=== PATIENT | female | born 1990 | race Two or more races ===

== ENCOUNTER 2016-06-29 06:14 | Inpatient (IN) | payer OTHER ==
[2016-06-29] VITALS (11 sets, daily range): BP systolic 109–146; BP diastolic 58–88
[~2016-06-29] VITALS: Ht 170.2 cm; Wt 66.7 kg
--- NOTE | 2016-06-29 06:15 | NUR ---
To bed 26 yo female bibra with c/o low blood sugar at 49mg/dl on the field. Per ems D50 was given IVP on the right ac g20 access. Patient is alert oriented x2, reporting bilateral flank pain. Breathing even and unlabored. Provided with warm blankets as patient was complaining that she feels cold. Gowned. Placed on deck mate. Blood sugar upon arrival to ED is 177mg/dl.
--- NOTE | 2016-06-29 06:17 | NUR ---
Dr Brooks at bedside for eval.
[2016-06-29] MEDS ORDERED: LORAZEPAM INJ 2 MG/ML VIAL ONE (06:25)
[2016-06-29] MEDS ORDERED: IV NS 0.9% 1,000 ML BAG IV ONE ×2 (06:30→10:30)
[2016-06-29] MEDS ORDERED: IV NS 0.9% 1,000 ML ONE ×2 (06:35→10:26)
[2016-06-29] MEDS ORDERED: IV SET PRIMARY 1 EA INFUS.SET MC ONE (06:35)
--- NOTE | 2016-06-29 06:37 | NUR ---
ativan 1mg ivp given per Dr venegas verbal order.
[2016-06-29] MEDS ORDERED: LORAZEPAM INJ 2 MG/ML VIAL IV ONE (07:00)
--- NOTE | 2016-06-29 07:00 | NUR ---
Rapid influenza swab done on the left nare.
--- NOTE | 2016-06-29 07:06 | NUR ---
lab at bedside to draw blood.
--- NOTE | 2016-06-29 07:08 | NUR ---
Noted patient to cough out bright red secretions from mouth, Dr Brooks was informed and checked on the patient at bedside.
--- NOTE | 2016-06-29 07:11 | NUR ---
Report given to Marty GALVAN for milad.
[2016-06-29 07:15] LABS: BASOPHILS % (AUTO) 0.2 % (0.0-2.0); EOSINOPHILS # (AUTO) 0.3 /CMM (0.0-0.7); EOSINOPHILS % (AUTO) 1.9 % (0.0-6.0); HEMATOCRIT 24 % (33-45); HEMOGLOBIN 7.6 g/dL (11.5-14.8); LYMPHOCYTES # (AUTO) 1.5 /CMM (0.8-4.8); LYMPHOCYTES % (AUTO) 8.6 % (20.0-44.0); MEAN CORPUSCULAR HEMOGLOBIN 28 PG (26.0-33.0); MEAN CORPUSCULAR HGB CONC 32 g/dl (31.0-36.0); MEAN CORPUSCULAR VOLUME 87 fL (82-100); MONOCYTES # (AUTO) 0.1 /CMM (0.1-1.30); MONOCYTES % (AUTO) 0.7 % (2.0-12.0); NEUTROPHILS # (AUTO) 15.3 /CMM (1.8-8.9); NEUTROPHILS % (AUTO) 88.6 % (43.0-81.0); PLATELET COUNT (AUTO) 277 /CMM (150-450); RDW COEFFICIENT OF VARIATION 17.5 (11.5-15.0); RED BLOOD CELL COUNT(AUTO) 2.74 MIL/uL (4.0-5.2); WHITE BLOOD COUNT (AUTO) 17.3 K/uL (4.3-11.0)
--- NOTE | 2016-06-29 07:25 | NUR ---
Patient on bed, asleep. VSs
[2016-06-29 07:27] LABS: CALCIUM, SERUM 7.8 mg/dL (8.5-10.1); CREATININE 5.7 mg/dL (0.6-1.3)
[2016-06-29 07:37] LABS: LACTIC ACID 1.9 mmol/L (0.4-2.0)
--- NOTE | 2016-06-29 07:45 | NUR ---
URINE SAMPLE OBTAINED, SENT.
--- NOTE | 2016-06-29 07:53 | NUR ---
Urine sample sent to lab
[2016-06-29] MEDS ORDERED: CEFTRIAXONE 1GM BAG (ER ONLY) 50 ML IV ONE (07:54)
[2016-06-29] MEDS ORDERED: IV SET PRIMARY PUMP SET 1 EA INFUS.SET MC ONE ×2 (07:55→10:26)
[2016-06-29] MEDS ORDERED: CEFTRIAXONE 1GM BAG (ER ONLY) 1 GM/50 ML PIGGYBACK IV ONE (08:00)
[2016-06-29] MEDS ORDERED: AZITHROMYCIN 500 MG in IV D5W 250 ML IV ONE (08:00)
[2016-06-29 08:08] LABS: APPEARANCE,URINE SL CLOUDY (CLEAR); BILIRUBIN,URINE NEGATIVE (NEGATIVE); BLOOD, URINE 1+ Ery/uL (NEGATIVE); COLOR,URINE OTHER (YELLOW); KETONES,URINE NEGATIVE (NEGATIVE); LEUKOCYTE ESTERASE ,URINE NEGATIVE (NEGATIVE); NITRITE, URINE NEGATIVE (NEGATIVE); PROTEIN,URINE 3+ mg/dl (NEGATIVE); UGLUCOSE TRACE mg/dL (NEGATIVE); UROBILINOGEN,URINE 0.2 EU/dL (0.2)
[2016-06-29 08:18] LABS: ADD URINE CULTURE YES; BACTERIA,URINE Many /HPF (None Seen); SQUAMOUS EPITHELIAL CELL,UR Rare /HPF (None Seen); URINE AMORPHOUS URATE Many /HPF (None Seen); WBC,URINE 0-2 /HPF (0-3)
--- NOTE | 2016-06-29 08:25 | NUR ---
CXR AT BS
[2016-06-29] MEDS ORDERED: PANTOPRAZOLE 80 MG in IV NS 0.9% 500 ML IV ONE (09:00)
--- NOTE | 2016-06-29 09:02 | NUR ---
CALLED RADIOLOGY FOR CT CHEST.
[2016-06-29] MEDS ORDERED: AMLO10TA2 PO (09:17)
[2016-06-29] MEDS ORDERED: INSU100I14 SQ (09:17)
[2016-06-29] MEDS ORDERED: INSU3INS6 SQ (09:17)
[2016-06-29] MEDS ORDERED: LOSA50TA21 PO (09:17)
--- NOTE | 2016-06-29 09:24 | NUR ---
PATIENT CAME BACK FROM CT VIA [facility].
[2016-06-29] MEDS ORDERED: IV NS 0.9% 500 ML IV ONE (10:26)
--- NOTE | 2016-06-29 10:39 | NUR ---
REPORT GIVEN TO MANDY COULTER FOR [facility]
--- NOTE | 2016-06-29 10:45 | NUR ---
DESI -- CALLED EPIC
--- NOTE | 2016-06-29 11:35 | NUR ---
RN NOTES RECEIVED PT FROM ER NURSE ON BED, DROWSY, AOX2, IV PROTONIX AND BOLUS RUNNING, IN R FOREARM, DATA SYSTEMS MANAGER SINUS TACHY 104, SKIN WARM,DRY, PALE, PT HAS GLUCOSE MONITOR DEVICE ATTACHED TO HER ABDOMEN, GLUCOSE 377, DR SEBASTIAN NOTIFIED, WAITING FOR ORDERS.
[2016-06-29] MEDS ORDERED: IV D5/0.45 NACL 1,000 ML IV PRN (12:28)
[2016-06-29] MEDS ORDERED: ONDANSETRON HCL/PF 4 MG/2 ML VIAL IVP PRN (12:30)
[2016-06-29] MEDS ORDERED: ZOLPIDEM TARTRATE 5 MG TABLET PO PRN (12:30)
[2016-06-29] MEDS ORDERED: Z GUARD REMEDY 2 OZ OINT TP PRN (12:30)
[2016-06-29] MEDS ORDERED: MAG HYDROX/AL HYDROX/SIMETH 30 ML UDC PO PRN (12:30)
[2016-06-29] MEDS ORDERED: MAGNESIUM HYDROXIDE 30 ML UDC PO PRN (12:30)
[2016-06-29] MEDS ORDERED: ENOXAPARIN SODIUM 40 MG/0.4 ML DISP.SYRIN SQ SCH (12:30)
[2016-06-29] MEDS ORDERED: IV NS 0.9% 250 ML IV ONE ×2 (12:45→16:59)
[2016-06-29] MEDS ORDERED: BLOOD IV SET 1 EA INFUS.SET MC ONE ×2 (12:45→16:59)
[2016-06-29] MEDS ORDERED: ALBUTEROL FS 2.5 MG/3 ML VIAL.NEB NEB PRN (13:00)
[2016-06-29] MEDS ORDERED: BLOOD SUGAR DIAGNOSTIC 1 EACH STRIP IN SCH (13:00)
[2016-06-29] MEDS ORDERED: DEXTROSE 50%-WATER 50 ML DISP.SYRIN IV PRN (13:00)
[2016-06-29] MEDS ORDERED: INSULIN REGULAR, HUMAN 100 UNIT/ML 3 ML VIAL SQ PRN (13:00)
--- NOTE | 2016-06-29 13:20 | NUR ---
WOUND CARE CONSULT: PATIENT SEEN AND SKIN ASSESSMENT DONE. PATIENT IS ALERT, ORIENTED, AMBULATORY, INDEPENDENT WITH BED MOBILITY, CONTINENT, PACHEOC 19. PATIENT PRESENTS WITH INTACT SKIN. ABDOMINAL BRUISING/DISCOLORATION NOTED DUE TO TAKING INSULIN INJECTIONS PER PATIENT. BOTH FEET DRY. RECOMMEND MOISTURIZE FEET, KEEP SKIN, FEET AND IN BETWEEN TOES CLEAN AND DRY, WEAR COMFORTABLE FOOTWEAR, MOISTURE PROTECTION WITH Z GUARD PRN ORDERED . ALL DISCUSSED WITH NURSING STAFF. MD IN AGREEMENT WITH PLAN OF CARE.
--- NOTE | 2016-06-29 13:42 | NUR ---
ABG PERFORMED WITH RESULTS: PH 7.23, CO2 36, P02 89, HCO3 15, BE -11 CHARGE NURSE MABEL INFORMED AND WILL CONTACT DOCTOR
[2016-06-29] MEDS: ACETAMINOPHEN 325 MG TABLET PO PRN ×2 (14:20→21:25)
[2016-06-29] MEDS ORDERED: VANCOMYCIN 1 GM in IV D5W 250 ML IV SCH (14:30)
[2016-06-29] MEDS: IV D5/0.45 NACL 1,000 ML IV PRN ×2 (14:32→23:21)
[2016-06-29] MEDS: BLOOD SUGAR DIAGNOSTIC 1 EACH STRIP IN SCH ×3 (14:47→20:55)
[2016-06-29] MEDS: INSULIN REGULAR, HUMAN 100 UNIT/ML 3 ML VIAL SQ PRN ×2 (14:50→17:48)
[2016-06-29] MEDS ORDERED: FEE PK DOSING 1 MIN EA MC ONE (14:51)
[2016-06-29] MEDS ORDERED: SECONDARY IV SET 1 EA INFUS.SET MC ONE ×2 (16:25→17:26)
[2016-06-29] MEDS: PIPERACILLIN /TAZOBACTAM 2.25 G in IV D5W 50 ML IV SCH ×2 (16:51→20:48)
[2016-06-29] MEDS: VANCOMYCIN 1 GM in IV D5W 250 ML IV SCH (17:48)
[2016-06-29] MEDS ORDERED: PIPERACILLIN /TAZOBACTAM 4.5 G in IV D5W 50 ML IV SCH (18:00)
[2016-06-29] MEDS ORDERED: PIPERACILLIN /TAZOBACTAM 2.25 G in IV D5W 50 ML IV SCH (18:00)
[2016-06-29] MEDS: HYDROCODONE/APAP 5/325MG 1 EACH TABLET PO PRN (18:41)
--- NOTE | 2016-06-29 19:00 | NUR ---
RN CLOSING NOTES PTREMAINED STABLE, BEFORE TRANSFUSION OF BLOOD PT HAD TEMP 100.3 DR SEBASTIAN NOTIFIED SHE SAID TO GIVE TYLENOL AND PROCEED WITH TRANSFUSION, PT TOLERATED WELL TRANSFUSION, ANTIBIOTICS AND FIRST INSULIN DOSE WERE GIVEN LATE DUE TO UNAVAILABILITY OF DRUGS IN THE UNIT AND BLOOD TRANSFUSION, PT TROPONIN WAS 0.439 DR SEBASTIAN AWARE. SAFETY MAINTAINED, CALL LIGHT WITHIN REACH, PT ROUNDING DONE Q1H, PT NEEDS SECOND UNIT OF BLOOD TO BE TRANSFUSED -WILL ENDORSE TO LIVE IN COMPANION NURSE
--- NOTE | 2016-06-29 20:00 | NUR ---
RN PT DENIES SOB . O2 SAT 88% . PLACED PT ON NON REBREATHER 15L . HOB ELEVATED. O2 SAT INCREASED TO 98% . WILL CONT TO MONITOR.
--- NOTE | 2016-06-29 20:30 | NUR ---
EARLY MORNING SECOND BLOOD TRANSFUSION STARTED. NO FEVER NOTED AT THIS TIME.
--- NOTE | 2016-06-29 20:45 | NUR ---
SECTIONIZER TEMP OF 100.3 NOTED DURING TRANSFUSION , TYLENOL GIVEN DIRECTED BY [facility] ORDER. NO OTHERS SYMPTOMS NOTED. WILL CONT TO MONITOR. Addendum: 06/30/16 at 0153 by BENJIE YIN RN COOLING MEASURES DONE.
[2016-06-29] MEDS: HEPARIN SODIUM, PORCINE 5000 UNITS/1 ML VIAL SQ SCH (20:51)
[2016-06-29] MEDS: INSULIN DETEMIR 100 UNIT/ML CARTRIDGE SQ SCH (22:00)
--- NOTE | 2016-06-29 22:00 | NUR ---
RN PT REFUSED LEVEMIR AT 2200 IN FEAR OF HYPOGLYCEMIA DURING THE NIGHT. WILL CONT TO MONITOR BS Q4H AND COVER W REGULAR INSULIN.
[2016-06-30] VITALS (37 sets, daily range): BP systolic 102–211; BP diastolic 58–118
[2016-06-30] MEDS: INSULIN REGULAR, HUMAN 100 UNIT/ML 3 ML VIAL SQ PRN ×4 (01:10→22:06)
[2016-06-30] MEDS: BLOOD SUGAR DIAGNOSTIC 1 EACH STRIP IN SCH ×6 (01:13→21:43)
--- NOTE | 2016-06-30 03:17 | NUR ---
RN PT C/O INSOMNIA , PRN AMBIEN GIVEN .
--- NOTE | 2016-06-30 03:27 | NUR ---
RN PT IS C/O OF INCREASED SOB WHILE SITTING IN BED DESPITE USE OF NON REBREATHER 15L MASK. CRACKLES HEARD THROUGHOUT LUNGS. IVF RUNNING AT 150 ML/HR . DR HURTADO AWARE. NEW ORDER FOR ABG GIVEN. RT AWARE.
[2016-06-30] MEDS ORDERED: FUROSEMIDE 20 MG/2 ML VIAL ONE (03:59)
[2016-06-30] MEDS ORDERED: CALCIUM CHLORIDE 1,000 MG/10 ML DISP.SYRIN IV ONE ×2 (04:00→09:06)
[2016-06-30] MEDS ORDERED: FUROSEMIDE 20 MG/2 ML VIAL IV SCH (04:00)
--- NOTE | 2016-06-30 04:01 | NUR ---
RN ABG RESULTS GIVEN TO DR HURTADO . PH=7.13 CO2=54 PAO2=49 BICARB 17 . GAVE ORDER FOR LASIX 20 MG IV NOW.
[2016-06-30] MEDS: PIPERACILLIN /TAZOBACTAM 2.25 G in IV D5W 50 ML IV SCH ×3 (04:24→20:22)
[2016-06-30] MEDS: HYDROCODONE/APAP 5/325MG 1 EACH TABLET PO PRN (04:37)
--- NOTE | 2016-06-30 04:38 | NUR ---
RN PT C/O 11/25 BACK PAIN , REQUESTING NORCO. BP 131/69 . REPOSITIONED FOR COMFORT AND PAIN MED GIVEN. PT IS STILL HAVING SOB AFTER LASIX
--- NOTE | 2016-06-30 04:45 | NUR ---
MANDY HURTADO AWARE THAT PATIENT IS STILL HAVING SOB AFTER LASIX . GAVE ORDER TO TRANSFER TO ICU . Addendum: 06/30/16 at 0559 by BENJIE YIN RN TRANSFER TO ICU FOR BIPAP.
--- NOTE | 2016-06-30 04:46 | NUR ---
RN NOTES CALLED DIRECTOR PRIVATE MUSIC THERAPY AGENCY ALEC SALEH TO INFORM REGARDING ORDER TO TRANSFER PATIENT TO ICU.
--- NOTE | 2016-06-30 04:47 | NUR ---
RN : RAPID RESPONSE PATIENT WAS FOUND IN BED UNRESPONSIVE . PT WAS PALE AND HAD BLUE LIPS , AGONAL BREATHING NOTED. WEAK THREADY PULSE FELT. RAPID RESPONSE CALLED. CRASH CART BROUGHT TO BEDSIDE. MAINTAINED PATENT AIRWAY AND VENTILATED PATIENT WITH BAG VALVE MASK. UNABLE TO FEEL PULSE . MELONIE FLOREZ CALLED . DR GARVIN AT BEDSIDE . INTUBATED PATIENT AND TRANSFERRED PT TO ICU VIA ACLS PROTOCOL . PT BELONGING , CELLPHONE , SENT TO ICU WITH PATIENT. REPORT GIVEN TO DONYA GALVAN . DR HURTADO NOTIFIED . PATIENT'S MOTHER NOTIFIED .
--- NOTE | 2016-06-30 04:50 | NUR ---
RAPID RESPONSE CALLED. PT HR AND O2 SATURATION DROPPED. STARTED BAGGING THE PATIENT AND RN INITIATED CPR. ER DOCTOR CAME UP AND INTUBATED PT. PT INTUBATED WITH 7.0 ETT AT 22CM AT THE LIP. GOOD COLOR CHANGE ON CO2 DETECTOR AND BILAT BREATH SOUNDS AND EQUAL CHEST RISE. PT TRANSPORTED TO ICU PLACED ON 840 VENT PER AC 14, 550, 100%, +5.
[2016-06-30] MEDS ORDERED: PROPOFOL 100 ML IV ONE ×2 (04:57→06:13)
[2016-06-30 05:25] LABS: BASOPHILS # (AUTO) 0.3 /CMM (0.0-0.2); EOSINOPHILS # (AUTO) 0.1 /CMM (0.0-0.7); EOSINOPHILS % (AUTO) 0.2 % (0.0-6.0); HEMATOCRIT 30 % (33-45); HEMOGLOBIN 9.9 g/dL (11.5-14.8); LYMPHOCYTES # (AUTO) 1.6 /CMM (0.8-4.8); LYMPHOCYTES % (AUTO) 5.9 % (20.0-44.0); MEAN CORPUSCULAR HEMOGLOBIN 28 PG (26.0-33.0); MEAN CORPUSCULAR HGB CONC 33 g/dl (31.0-36.0); MEAN CORPUSCULAR VOLUME 86 fL (82-100); MONOCYTES # (AUTO) 0.2 /CMM (0.1-1.30); MONOCYTES % (AUTO) 0.9 % (2.0-12.0); PLATELET COUNT (AUTO) 221 /CMM (150-450); RDW COEFFICIENT OF VARIATION 16.5 (11.5-15.0); RED BLOOD CELL COUNT(AUTO) 3.49 MIL/uL (4.0-5.2); WHITE BLOOD COUNT (AUTO) 27.2 K/uL (4.3-11.0)
[2016-06-30] MEDS ORDERED: PROPOFOL 100 ML IV PRN (05:30)
[2016-06-30] MEDS ORDERED: LORAZEPAM INJ 2 MG/ML VIAL IV PRN (05:30)
[2016-06-30] MEDS: PROPOFOL 100 ML IV PRN ×10 (05:31→22:45)
--- NOTE | 2016-06-30 05:35 | NUR ---
EXPENDITURE REQUISITION CLERK RCD PT FROM [facility] S/P CODE BLUE; PT IS NOW SEDATED WITH DIPRIVAN AT 100 MCG/KG/MIN; ST 120s ON MONITOR. INTUBATED 7.0 @ 22 W/VENT SETTINGS AC 14 550 100% 5; EDEMA NOTED TO ORBITAL AREA, BL ARMS AND LEGS; RIGHT HAND 22 G AND R FA 20 G PATENT AND WITH GOOD BLOOD RETURN. CONTINUE TO MONITOR. Addendum: 06/30/16 at 0555 by DONYA LANDIS RN PT NOTED WITH GLUCOSE MONITORING SYSTEM TO RLQ ABD.
[2016-06-30 05:37] LABS: CALCIUM, SERUM 9.1 mg/dL (8.5-10.1); CREATININE 5.5 mg/dL (0.6-1.3); POTASSIUM 5.4 mmol/L (3.5-5.1)
[2016-06-30 05:45] LABS: MAGNESIUM 1.8 mg/dL (1.8-2.4); PHOSPHORUS 4.9 mg/dL (2.5-4.9)
[2016-06-30] MEDS ORDERED: IV SET PRIMARY PUMP SET 1 EA INFUS.SET MC ONE ×4 (05:45→14:58)
[2016-06-30 05:47] LABS: BILIRUBIN,DIRECT 0.1 mg/dL (0.0-0.2); BILIRUBIN,TOTAL 0.4 mg/dL (0.2-1.0); TOTAL PROTEIN, SERUM 6.1 g/dL (6.4-8.2); TROPONIN I 0.159 ng/mL (0.00-0.056)
[2016-06-30 05:56] LABS: THYROID STIMULATING HORMONE 5.186 uIU/mL (0.358-3.74)
--- NOTE | 2016-06-30 06:00 | NUR ---
SALES REPRESENTATIVES DESPITE BEING ON DIPRIVAN AT 100 MCG/KG/MIN PT STILL HAS MOMENTS WHERE SHE WAKES UP AND REACHES FOR ET TUBE. BL SOFT WRIST RESTRAINTS APPLIED FOR PT SAFETY. CONTINUE TO MONITOR.
--- NOTE | 2016-06-30 06:31 | NUR ---
ABG DONE, RN NOTIFIED WITH THE RESULT.
[2016-06-30 06:39] LABS: BAND % (MANUAL) 5 % (0.0-5.0); EOSINOPHILS % (MANUAL) 1 % (0-4); LYMPHOCYTES % (MANUAL) 6 % (16-48); MONOCYTES % (MANUAL) 1 % (0-11.0); NEUTROPHILS % (MANUAL) 87 (42-76); PLATELET ESTIMATE ADEQUATE
[2016-06-30 06:40] LABS: ANISOCYTOSIS 1+
--- NOTE | 2016-06-30 06:40 | NUR ---
COAL CUTTING MACHINE OPERATOR PH 7.199, PCO2 44.7, PO2 192.2, HCO3 17.0. AC INCREASED TO 18; FIO2 DECREASED TO 70% PER MD ORDER.
--- NOTE | 2016-06-30 06:42 | NUR ---
CHANGED RATE TO 18 AND FIO2 TO 70% PER DR PORTER.
--- NOTE | 2016-06-30 07:05 | NUR ---
RN INITIAL NOTES RECEIVED PT INTUBATED. ETT IN PLACE. ON [facility] VENT WITH FF SETTINGS: AC18, VT550 FI02 70%, PEEP +5. NO RESPIRATORY DISTRESS NOTED. NO SOB NOTED. NO SIGNS OF PAIN NOTED. HOB ELEVATED. RH G#22 AND RFA G#[address] ON DIPRIVAN AT 100MCG/KG/MIN. BILATERAL WRIST RESTRAINTS ON. NO CIRCULATORY IMPAIRMENT NOTED. GOOD CAPILLARY REFILL NOTED. FC IN PLACE. NO HEMATURIA NOR SEDIMENTS NOTED. BLE ELEVATED. WILL CONTINUE TO MONITOR.
[2016-06-30] MEDS: PANTOPRAZOLE 40 MG TABLET.DR PO SCH (07:30)
[2016-06-30] MEDS ORDERED: BUMETANIDE INJ 8 MG in IV NS 0.9% 48 ML IV ONE (08:00)
[2016-06-30] MEDS: HEPARIN SODIUM, PORCINE 5000 UNITS/1 ML VIAL SQ SCH ×2 (08:11→20:23)
[2016-06-30] MEDS: DEXTROSE 50%-WATER 50 ML DISP.SYRIN IV PRN (08:13)
[2016-06-30] MEDS ORDERED: [UNRECOGNIZED DRUG - OTHER] SQ SCH (09:00)
[2016-06-30] MEDS ORDERED: INSULIN GLARGINE HUM REC ANLOG SQ SCH (09:00)
[2016-06-30] MEDS ORDERED: SUCCINYLCHOLINE CHLORIDE 20 MG/ML VIAL IV ONE (09:05)
[2016-06-30] MEDS ORDERED: ETOMIDATE 2 MG/ML VIAL IV ONE (09:05)
[2016-06-30 09:33] LABS: CANNABINOID, URINE NEGATIVE (NEGATIVE); PHENCYCLIDINE SCREEN,URINE NEGATIVE (NEGATIVE)
--- NOTE | 2016-06-30 11:50 | NUR ---
RN NOTES SEEN AND EXAMINED BY DR. SEBASTIAN. AWARE OF LAB RESULTS: WBC 12.7. AFEBRILE. ON IV ATB. NO ASE NOTED. HGB 9.9, HCT 30. SP BT 2 UNITS YESTERDAY. NO SIGNS OF ACTIVE BLEEDING NOTED. SODIUM 137, POTASSIUM 5.4, BUN 54, CREA 5.5. PT HAS CKD. TROPONIN 0.159. DR PORTER AWARE. ALBUMIN 2, TSH 5.185. MD ALSO AWARE OF CXR RESULT. MD ORDERED ABG AND LACTIC ACID. MD ORDERED LEVAQUIN IV ATB AND CONSULT WITH MARICRUZ DIEGO. DISCUSSED PLAN OF CARE WITH FAMILY AT BEDSIDE. ALL ORDERS NOTED AND CARRIED OUT.
[2016-06-30] MEDS ORDERED: LEVOFLOXACIN 500 MG /D5W 100ML 500 MG in PREMIX 1 EA IV SCH (12:00)
[2016-06-30 12:03] LABS: ABG BASE EXCESS -11.2 mmol/L; ABG OXYGEN SATURATION 95.9 % (92.0-98.5); ABG PH 7.228 (7.350-7.450); ABG PO2 89.5 mmHg (75.0-100.0); ABG TOTAL HEMOGLOBIN 8.5 G/dL (12.0-16.0); COHb 1.1 % (0.5-1.5); MetHb 1.2 % (0.0-1.5); O2Hb 93.7 % (94.0-97.0); PEEP,BG 5 cm H2O; SITE, ABG Left Radial; VT, ABG 550 mL
[2016-06-30] MEDS ORDERED: SECONDARY IV SET 1 EA INFUS.SET MC ONE ×2 (12:14→14:57)
[2016-06-30] MEDS ORDERED: IV NS 0.9% 250 ML IV ONE (12:14)
--- NOTE | 2016-06-30 12:15 | NUR ---
RN NOTES SEEN AND EXAMINED BY DR. ABARCA. AWARE OF PT'S STATUS. NOTIFIED OF ABG RESULT. MD ORDERED TO INCREASE PEEP TO 10. WILL CONTINUE TO MONITOR.
[2016-06-30] MEDS ORDERED: LEVOFLOXACIN 500 MG /D5W 100ML 500 MG in PREMIX 1 EA IV ONE (13:00)
[2016-06-30] MEDS: SOD FERRIC GLUC 125 MG in IV NS 0.9% 100 ML IV SCH (15:27)
[2016-06-30] MEDS ORDERED: ATROPINE SULFATE 1 MG/10 ML DISP.SYRIN IV ONE (16:34)
[2016-06-30] MEDS ORDERED: EPINEPHRINE (1:10,000) SYRINGE 1 MG/10 ML DISP.SYRIN IVP ONE (16:36)
[2016-06-30] MEDS ORDERED: IV D5/ 0.9% NACL 1,000 ML IV PRN (17:30)
--- NOTE | 2016-06-30 18:09 | NUR ---
RT END OF THE SHIFT REPORT: PT. 26 Y OLD FEMALE REMAIN ORALLY INTUBATED ETT #7.0 @ 22CM LIP ON VENT WITH NOTED SETTING, ALARMS ARE SET AND FUNCTIONAL, NO DISTRESS NOTED T/O SHIFT, VENT PLUGGED INTO RED OUTLET EQUAL CHEST RISE NOTED ROMERO'X FOR MINIMAL REDDISH SECRETIONS, B/S BILATERALLY RALES. (CHANGES PER MD LOVING PEEP +10), HME CHANGED AMBU BAG REMAIN AT THE BEDSIDE. REPORT WILL PASS ON TO PM SHIFT Addendum: 06/30/16 at 1811 by LAYLA BUTCHER RT Amended: Links added.
--- NOTE | 2016-06-30 18:35 | NUR ---
RN CLOSING NOTES PT REMAINS INTUBATED. ON MECH VENT. NO RESPIRATORY DISTRESS NOTED. NO SOB NOTED. KEPT HOB ELEVATED. NO SIGNS OF PAIN NOTED. IV LINES IN PLACE. TOLERATING IVF. REMAINS ON DIPRIVAN. FC IN PLACE. ADEQUATE OUTPUT NOTED. KEPT CLEAN AND DRY. REPOSITIONED Q2. KEPT BLE ELEVATED. KEPT COMFORTABLE. WILL ENDORSE FOR CONTINUITY OF CARE.
--- NOTE | 2016-06-30 20:00 | NUR ---
CDL INSTRUCTOR RCD PT W/DX PNA; PT IS SEDATED ON DIPRIVAN AT 100 MCG/KG/MIN WELL BL SOFT WRIST RESTRAINTS PT WAKES UP DURING ADLs DESPITE DIPRIVAN. NSR ON MONITOR. INTUBATED 7.0 @ 22 W/VENT SETTINGS AC 18 550 70% 10; PT NOTED WITH WHITE THICK SECRETIONS. ORAL CARE RENDERED. NG TUBE INSERTED TO RIGHT NARE. TUBE FEEDING STARTED. R FA 22 G AND R FA 20 G PATENT AND FLUSHING WELL. HOB ELEVATED. BED LOCKED AND IN LOW POSITION.
[2016-06-30] MEDS: GLYTROL 1,000 ML BAG GT PRN (20:22)
[2016-06-30] MEDS: IV NS 0.9% 250 ML IV PRN (20:29)
--- NOTE | 2016-06-30 21:26 | NUR ---
PT RECEIVED INTUBATED WITH 7.0 ETT SECURED AT 22CM AT THE LIP VIA ANCHOR FAST. NO RESP DISTRESS NOTED PT TOLERATING VENT SETTINGS. SX'D FOR MOD AMT OF TINGED SECRETIONS. VENT ALARMS SET AND AUDIBLE. AMBU BAG AT BEDSIDE. VENT PLUGGED INTO RED OUTLET. WILL CONTINUE TO MONITOR. Addendum: 06/30/16 at 2129 by CHICO SIMMONS RT Amended: Links added.
[2016-06-30] MEDS ORDERED: INSULIN DETEMIR 100 UNIT/ML CARTRIDGE SQ ONE (21:53)
[2016-06-30] MEDS: INSULIN DETEMIR 100 UNIT/ML CARTRIDGE SQ SCH (22:07)
[2016-07-01] VITALS (43 sets, daily range): BP systolic 102–125; BP diastolic 43–65
[2016-07-01] MEDS ORDERED: IV SET PRIMARY PUMP SET 1 EA INFUS.SET MC ONE ×3 (00:55→12:43)
[2016-07-01] MEDS: BLOOD SUGAR DIAGNOSTIC 1 EACH STRIP IN SCH ×6 (00:59→21:29)
[2016-07-01] MEDS: PROPOFOL 100 ML IV PRN ×11 (01:00→23:45)
[2016-07-01] MEDS: INSULIN REGULAR, HUMAN 100 UNIT/ML 3 ML VIAL SQ PRN ×2 (01:09→21:35)
[2016-07-01] MEDS: VANCOMYCIN 1 GM in IV D5W 250 ML IV SCH (03:30)
[2016-07-01] MEDS: IV NS 0.9% 250 ML IV PRN (04:27)
[2016-07-01 05:12] LABS: BASOPHILS % (AUTO) 0.2 % (0.0-2.0); EOSINOPHILS # (AUTO) 0.8 /CMM (0.0-0.7); EOSINOPHILS % (AUTO) 3.5 % (0.0-6.0); HEMATOCRIT 24 % (33-45); HEMOGLOBIN 7.9 g/dL (11.5-14.8); LYMPHOCYTES # (AUTO) 1.4 /CMM (0.8-4.8); LYMPHOCYTES % (AUTO) 6.3 % (20.0-44.0); MEAN CORPUSCULAR HEMOGLOBIN 28 PG (26.0-33.0); MEAN CORPUSCULAR HGB CONC 33 g/dl (31.0-36.0); MEAN CORPUSCULAR VOLUME 87 fL (82-100); MONOCYTES # (AUTO) 0.6 /CMM (0.1-1.30); MONOCYTES % (AUTO) 2.8 % (2.0-12.0); NEUTROPHILS % (AUTO) 87.2 % (43.0-81.0); PLATELET COUNT (AUTO) 170 /CMM (150-450); RDW COEFFICIENT OF VARIATION 16.6 (11.5-15.0); RED BLOOD CELL COUNT(AUTO) 2.81 MIL/uL (4.0-5.2); WHITE BLOOD COUNT (AUTO) 21.8 K/uL (4.3-11.0)
[2016-07-01 05:25] LABS: BILIRUBIN,TOTAL 0.4 mg/dL (0.2-1.0); CALCIUM, SERUM 7.9 mg/dL (8.5-10.1); CREATININE 6.1 mg/dL (0.6-1.3); MAGNESIUM 1.6 mg/dL (1.8-2.4); PHOSPHORUS 4.9 mg/dL (2.5-4.9); POTASSIUM 4.4 mmol/L (3.5-5.1); TOTAL PROTEIN, SERUM 4.9 g/dL (6.4-8.2)
[2016-07-01 05:26] LABS: TROPONIN I 0.085 ng/mL (0.00-0.056)
[2016-07-01] MEDS: PIPERACILLIN /TAZOBACTAM 2.25 G in IV D5W 50 ML IV SCH ×3 (05:30→21:25)
[2016-07-01 05:38] LABS: ALBUMIN 1.4 g/dL (3.4-5.0)
--- NOTE | 2016-07-01 07:05 | NUR ---
RN INITIAL NOTES RECEIVED PT SEDATED. ON MECH VENT. ETT IN PLACE. NO RESPIRATORY DISTRESS NOTED. NO SOB NOTED. NO SIGNS OF PAIN NOTED. NGT IN PLACE. ON GLYTROL AT 40ML/HR. TOLERATES GTF. IV LINES IN PLACE. ON DIPRIVAN AT 100MCG/KG/MIN. BILATERAL WRIST RESTRAINTS ON. NO CIRCULATORY IMPAIRMENT NOTED. FC IN PLACE. NO HEMATURIA NOTED. BLE ELEVATED. WILL CONTINUE TO MONITOR.
[2016-07-01] MEDS ORDERED: BUMETANIDE INJ 8 MG in IV NS 0.9% 48 ML IV ONE (08:00)
--- NOTE | 2016-07-01 08:00 | NUR ---
RN NOTES SEEN AND EXAMINED BY DR. PORTER. AWARE OF LAB RESULTS. MD ORDERED MG X2BAGS FOR MG 1.6. HGB 7.9, HCT 24. NO SIGNS OF ACTIVE BLEEDING NOTED. ON FERRLECIT. BUN 58, CREA 6.1, FOR RENAL CONSULT. TROPONIN 0.085, TRENDING DOWN. ORDERS MADE, NOTED AND CARRIED OUT.
[2016-07-01] MEDS: PANTOPRAZOLE 40 MG TABLET.DR PO SCH (08:08)
[2016-07-01] MEDS: HEPARIN SODIUM, PORCINE 5000 UNITS/1 ML VIAL SQ SCH ×2 (08:09→21:26)
[2016-07-01] MEDS: Magnesium 1GM/D5W 100ML PREMIX 100 ML IV SCH ×2 (08:11→09:13)
[2016-07-01 08:41] LABS: ABG BASE EXCESS -8.7 mmol/L; ABG OXYGEN SATURATION 95.7 % (92.0-98.5); ABG PCO2 35.5 mmHg (35.0-45.0); ABG PH 7.297 (7.350-7.450); ABG PO2 88.8 mmHg (75.0-100.0); AaDO2 227.8 mmHg; COHb 0.7 % (0.5-1.5); MetHb 1.7 % (0.0-1.5); O2Hb 93.4 % (94.0-97.0); PEEP,BG 10 cm H2O; SITE, ABG Right Radial; VT, ABG 550 mL
--- NOTE | 2016-07-01 09:20 | NUR ---
RN NOTES SEEN AND EXAMINED BY DR. MIRNA RAZO. AWARE OF LABS RESULTS. OK WITH DIURETICS PER CARDIO. PER MD, NO NEED HD AT THIS POINT. PT HAVING ADEQUATE OUTPUT. ORDERED LABS IN AM.
--- NOTE | 2016-07-01 11:00 | NUR ---
RN NOTES DR. SEBASTIAN CALLED. AWARE OF PT'S LAB RESULTS: WBC 21.8. AFEBRILE. ON IV ATBS. NO ASE NOTED. HGB 7.9, HCT 24. NO SIGNS OF ACTIVE BLEEDING NOTED. ON FERRLECIT. BUN 58, CREA 6.1. PT AHS GOOD URINE OUTPUT. GIVEN BUMEX IV PER DR. PORTER. SEEN BY DR. MIRNA RAZO. NO HD AT THIS POINT MAGNESIUM 1.6, REPLACED. TROPONIN 0.085, ALBUMIN 1.4. ALSO AWARE OF CXR RESULT. NO ORDER MADE AT THIS TIME.
[2016-07-01] MEDS: GLYTROL 1,000 ML BAG GT PRN (12:47)
--- NOTE | 2016-07-01 13:15 | NUR ---
RN NOTES VACATION SEDATION DONE. PT ABLE TO OPEN EYES. UNABLE TO FOLLOW COMMANDS. FAMILY AT BEDSIDE. WILL TITRATE DIPRIVAN ACCORDINGLY.
--- NOTE | 2016-07-01 13:30 | NUR ---
RN NOTES SEEN AND EXAMINED BY DR. COOPER. AWARE OF PT'S STATUS. TOLERATING VENT WELL. PT ON DIPRIVAN. ORDERS MADE, NOTED AND CARRIED OUT.
[2016-07-01] MEDS: SOD FERRIC GLUC 125 MG in IV NS 0.9% 100 ML IV SCH (13:56)
[2016-07-01] MEDS ORDERED: GLYTROL 1,000 ML BAG GT PRN (18:36)
--- NOTE | 2016-07-01 18:49 | NUR ---
RN CLOSING NOTES PT REMAINS INTUBATED AND SEDATED. [facility]. NO RESPIRATORY DISTRESS NOTED. NO SOB NOTED. NO SIGNS OF PAIN NOTED. IV LINES IN PLACE. NGT IN PLACE. TOLERATING GTF WELL. FC IN PLACE. KEPT CLEAN AND DRY. REPOSITIONED Q2. KEPT BLE ELEVATED. CALL LIGHT WITHIN REACH. WILL ENDORSE FOR CONTINUITY OF CARE.
--- NOTE | 2016-07-01 20:27 | NUR ---
received pt from day shift, sedated on Diprivan at 80mcg, SR, on the vent, lungs congested, non pitting edema all extremities, restraints on, NG to feeding some residual, f/c good output, v/s stable, no pain, pt turned and repositioned.
[2016-07-01] MEDS: INSULIN DETEMIR 100 UNIT/ML CARTRIDGE SQ SCH (21:29)
[2016-07-02] VITALS (49 sets, daily range): BP systolic 101–185; BP diastolic 47–103
--- NOTE | 2016-07-02 00:49 | NUR ---
pt is resting in the bed, sedated on Diprivan at 50mcg, v/s stable, no pain, very low urine output, pt turned and repositioned q2hrs.
[2016-07-02] MEDS: BLOOD SUGAR DIAGNOSTIC 1 EACH STRIP IN SCH ×5 (01:11→18:05)
[2016-07-02] MEDS ORDERED: IV NS 0.9% 250 ML IV ONE (01:13)
[2016-07-02] MEDS ORDERED: IV SET PRIMARY PUMP SET 1 EA INFUS.SET MC ONE (01:44)
[2016-07-02] MEDS: PROPOFOL 100 ML IV PRN ×3 (04:33→10:43)
[2016-07-02] MEDS: PIPERACILLIN /TAZOBACTAM 2.25 G in IV D5W 50 ML IV SCH ×4 (04:39→23:56)
[2016-07-02] MEDS: DEXTROSE 50%-WATER 50 ML DISP.SYRIN IV PRN ×2 (04:39→09:02)
--- NOTE | 2016-07-02 05:10 | NUR ---
blood sugar 47, D50 given recheck 110
[2016-07-02 05:12] LABS: BILIRUBIN,TOTAL 0.5 mg/dL (0.2-1.0); CALCIUM, SERUM 7.9 mg/dL (8.5-10.1); CREATININE 6.8 mg/dL (0.6-1.3); MAGNESIUM 2.1 mg/dL (1.8-2.4); PHOSPHORUS 4.7 mg/dL (2.5-4.9); POTASSIUM 4.3 mmol/L (3.5-5.1); TOTAL PROTEIN, SERUM 5.2 g/dL (6.4-8.2)
[2016-07-02 05:15] LABS: BASOPHILS % (AUTO) 0.1 % (0.0-2.0); EOSINOPHILS # (AUTO) 1.1 /CMM (0.0-0.7); HEMATOCRIT 23 % (33-45); HEMOGLOBIN 7.6 g/dL (11.5-14.8); LYMPHOCYTES # (AUTO) 1.5 /CMM (0.8-4.8); LYMPHOCYTES % (AUTO) 8.2 % (20.0-44.0); MEAN CORPUSCULAR HEMOGLOBIN 28 PG (26.0-33.0); MEAN CORPUSCULAR HGB CONC 33 g/dl (31.0-36.0); MEAN CORPUSCULAR VOLUME 86 fL (82-100); MONOCYTES # (AUTO) 0.6 /CMM (0.1-1.30); MONOCYTES % (AUTO) 3.3 % (2.0-12.0); NEUTROPHILS # (AUTO) 15.4 /CMM (1.8-8.9); NEUTROPHILS % (AUTO) 82.4 % (43.0-81.0); PLATELET COUNT (AUTO) 198 /CMM (150-450); RDW COEFFICIENT OF VARIATION 17.4 (11.5-15.0); RED BLOOD CELL COUNT(AUTO) 2.72 MIL/uL (4.0-5.2); WHITE BLOOD COUNT (AUTO) 18.7 K/uL (4.3-11.0)
[2016-07-02 05:19] LABS: ALBUMIN 1.3 g/dL (3.4-5.0)
--- NOTE | 2016-07-02 05:37 | NUR ---
pt is resting in the bed, no acute distress overnight, sedated on diprivan at 60mcg, tolerates feeding, low urine output, one BM, v/s stable, no pain, pt cleaned, changed and repositioned q2hrs.
--- NOTE | 2016-07-02 07:05 | NUR ---
SLICING MACHINE FEEDER NOTES RECEIVED PATIENT SEDATED , RESPONSIVE TO DEEP PAIN STIMULI , NOT IN ACUTE DISTRESS , RESPIRATIONS EVEN AND UNLABORED , WITH SPO2 OF 100% VIA MECHANICAL VENTILATOR WITH SETTINGS OF AC 18 TV 550 FIO2 50 AND PEEP OF 10 , ETT OF 7.0/[address] , SR 85 ON BEDSIDE MONITOR . R NGT PATENT AND INTACT AUSCULTATED , NOTED GURGLING SOUND AROUND STOMACH AREA , FC DRAINING WELL VIA GRAVITY WITH CLEAR YELLOW URINE , BILATERAL WRIST RESTRAINTS IN PLACE VISUAL CHECK PER PROTOCOL, NGT OF GYTROL @ 65ML/HR NOTED WITH 10 ML RESIDUALS , IV OF R FA # 20 PATENT AND INTACT AND R EJ # 20 PATENT AND INTACT WITH DIPRIVAN @ 60MCG/MIN , NS @ TKO , R SIDED DEXCOM G5 IN PLACE , ALL NEEDS ATTENDED , BED ON LOW AND LOCKED POSITION , SIDE RAILS X2 , CALL LIGHT WITHIN REACH , HOB @ 45, WILL CONTINUE TO MONITOR
[2016-07-02] MEDS: PROSOURCE / PROSTAT (PYXIS) 30 ML UDC GT SCH (08:43)
[2016-07-02] MEDS: PANTOPRAZOLE 40 MG TABLET.DR PO SCH (08:43)
[2016-07-02] MEDS: HEPARIN SODIUM, PORCINE 5000 UNITS/1 ML VIAL SQ SCH ×2 (08:45→20:42)
--- NOTE | 2016-07-02 09:00 | NUR ---
CHASER APPRENTICE NOTES SEDATION VACATION @ 0830 , WILL CONTINUE TO MONITOR @ 0900 PT ABLE TO OPENS EYES , DOES NOT FOLLOWS COMMANDS , RR OF 33 . PLACED BACK PT ON DIPRIVAN @ 55MCG/MIN
--- NOTE | 2016-07-02 09:00 | NUR ---
BANKING MANAGER NOTES BS OF 36 , SKIN WARM TO TOUCH , NOT DIAPHORETIC , WILL GIVE D50 IVP PRN
--- NOTE | 2016-07-02 09:00 | NUR ---
CLIENT ACCOUNT SPECIALIST NOTES NOTIFIED DR PORTER REGARDING PT H/H OF 7.623 , PT RECEIVING HEPARIN 5,000U Q12 , PER MD SCHUSTER TO GIVE
[2016-07-02 09:02] LABS: ABG BASE EXCESS -9.6 mmol/L; ABG OXYGEN SATURATION 98.7 % (92.0-98.5); ABG PCO2 28.5 mmHg (35.0-45.0); ABG PH 7.342 (7.350-7.450); ABG TOTAL HEMOGLOBIN 7.8 G/dL (12.0-16.0); AaDO2 84.4 mmHg; COHb 0.7 % (0.5-1.5); MetHb 1.8 % (0.0-1.5); O2Hb 96.2 % (94.0-97.0); PEEP,BG 10 cm H2O; SITE, ABG Left Brachial; VT, ABG 550 mL
--- NOTE | 2016-07-02 09:10 | NUR ---
pt received on vent support via et tube. b/s clear bilateral, sxn very small amnt clear thin secretions. pt is on ac 18, vt 550, fio2 50%, peep +10 Addendum: 07/02/16 at 0914 by ASAF REYES RT Amended: Links added.
--- NOTE | 2016-07-02 09:14 | NUR ---
fio2 decreased from 50% to 35%, due to paO2 240 mmHg. Addendum: 07/02/16 at 0915 by ASAF REYES RT Amended: Links added.
--- NOTE | 2016-07-02 09:17 | NUR ---
REAL TIME TRADER NOTES BS RE ASSESSED AFTER D50 IVP , BS OF 116 , WILL CONTINUE TO MONITOR
--- NOTE | 2016-07-02 10:00 | NUR ---
SPANISH SPEAKING NANNY NOTES NOTIFIED DR FORBES REGARDING BS OF 36 , D50 GIVEN IVP , BS OF 116 POST D50 , PT ON LEVEMIR 33UNITS HS , ON MODERATE SLIDING SCALE Q4 AND NGT FEEDING OF GLYTROL @ 65ML/HR TOLERATING WELL WITH 10ML RESIDUALS , CREATININE OF 6.8 AND BUN OF 62 , FC DRAINING WITH CLEAR YELLOW URINE 400ML SINCE 0700AM , H/H 7.6/23 , MD AWARE AWAITING FOR ORDERS
[2016-07-02] MEDS ORDERED: EPOETIN ALFA (40,000 UNIT) 40,000 UNIT/ML VIAL SQ ONE (10:30)
[2016-07-02] MEDS ORDERED: DEXTROSE 50%-WATER 50 ML DISP.SYRIN IV PRN (11:00)
--- NOTE | 2016-07-02 12:00 | NUR ---
PEANUT BLANCHER NOTES DR COOPER AT BEDSIDE DISCUSSED ABG AND CHEST XRAY RESULT , CURRENTLY ON MECHANICAL VENTILATOR WITH SETTINGS OF CA 18 , TV 550 FIO2 35 AND PEEP OF 10 , PER MD DECREASE PEEP TO 5 , NOTIFIED PT MENTAL STATUS DURING SEDATION VACATION , ABLE TO OPENS EYES BUT NOT FOLLOWS COMMANDS ,PER MD DISCONTINUE DIPRIVAN AND CONTINUE MENTAL STATUS , WILL DO BREATHING TRIAL TOMORROW MORNING .
[2016-07-02] MEDS: LEVOFLOXACIN 250 MG /D5W 50 ML 250 MG in PREMIX 1 EA IV SCH (12:08)
--- NOTE | 2016-07-02 12:10 | NUR ---
VOLUNTEER PATIENT REPRESENTATIVE NOTES DR SEBASTIAN AT BEDSIDE , DISCUSSED LABORATORY RESULT , ABG RESULT , NOTIFIED PT BLOOD SUGAR OF 36 @ 0900 , D50 GIVEN , UPON RE ASSESSMENT BS OF 116 , LEVEMIR DOSE CHANGED BY DR FORBES, PER MD SHE WILL CHANGE LEVEMIR TO 15UNITS HS , ACCU CHECK CHANGE TO MILD SLIDING SCALE Q4 , PT NGT FEEDING OF GLYTROL @ 65ML/HR NOTED WITH 300ML RESIDUALS @ 1200 , NGT FEEDING HELD , PT ABLE TO OPENS EYES BUT DOES NOT FOLLOWS COMMANDS DURING SEDATION VACATION , MD AWARE . WILL CONTINUE TO MONITOR
--- NOTE | 2016-07-02 12:12 | NUR ---
decreased peep from 10 to 5 per md order. Addendum: 07/02/16 at 1212 by ASAF REYES RT Amended: Links added.
[2016-07-02] MEDS ORDERED: METOCLOPRAMIDE HCL 10 MG TABLET PO PRN (12:30)
[2016-07-02] MEDS: SOD FERRIC GLUC 125 MG in IV NS 0.9% 100 ML IV SCH (13:37)
--- NOTE | 2016-07-02 15:00 | NUR ---
ESTHETICIAN FACIALIST NOTES PT ABLE TO OPENS EYES , TRACKS , FOLLOWS COMMANDS AT THIS TIME , NOTED TO BE A LITTLE SEDATED , BUT RESPONSIVE TO VERBAL STIMULI , WILL CONTINUE TO MONITOR
[2016-07-02] MEDS: LORAZEPAM INJ 2 MG/ML VIAL IV PRN ×2 (16:16→22:29)
--- NOTE | 2016-07-02 16:30 | NUR ---
SLURRY BLENDER NOTES RIGHT GROIN TEMPORARY HD CATH PLACED BY JEROME FOLEY , NO ACTIVE BLEEDING NOTED , PT TOLERATED THE PROCEDURE WELL , WILL CONTINUE TO MONITOR
[2016-07-02] MEDS: LACTOBACILLUS RHAMNOSUS GG 1 EACH CAP.SPRINK NG SCH (17:54)
--- NOTE | 2016-07-02 18:58 | NUR ---
ORE CRUSHING DUST COLLECTOR NOTES PT STABLE PRIOR TO HD , RIGHT GROIN HD CATHETER IN PLACE ,HD NURSE NOTIFIED ABOUT PT LABORATORY RESULT , WILL CONTINUE TO MONITOR
--- NOTE | 2016-07-02 19:04 | NUR ---
ASSISTANT DIRECTOR OF PLANT OPERATIONS NOTES PT STABLE AT THIS TIME , OPENS EYES , RESPONSIVE TO VERBAL STIMULI , FOLLOWS COMMANDS ,NOT IN ACUTE DISTRESS , RESPIRATIONS EVEN AND UNLABORED , SPO2 OF 100% VIA MECHANICAL VENTILATOR SETTINGS ORDERED , ETT 7.0 / [address] , SR 85 ON BEDSIDE MONITOR , FC DRAINING WELL VIA CLEAR YELLOW URINE , R NGT IN PLACE WITH NGT FEEDING OF GLYTROL @ 65ML/HR INFUSING WELL WITH NO RESIDUALS NOTED , BILATERAL WRIST RESTRAINTS IN PLACE , IV OF R FA # 20 , R EJ # 20 PATENT AND INTACT, FRANKLIN MIDLINE # 18 PATENT AND INTACT WITH NS @ TKO , R GROIN TEMPORARY HD CATH IN PLACE C/D/I , R SIDED SUGAR MONITOR IN PLACE , ALL NEEDS ATTENDED , BED ON LOW AND LOCKED POSITION , SIDE RAILS X2 ,CALL LIGHT WITHIN REACH , HOB @ 45 , WILL GIVE REPORT TO PM NURSE FOR CONTINUITY OF CARE
--- NOTE | 2016-07-02 19:30 | NUR ---
ICU/RN RECEIVED PT AWAKE,ALERT ORIENTED TO NAME AND PLACE.HD IN PROGRESS.TOLERATING TUBE FEEDING W/OUT RESIDUAL AT THIS TIME.
[2016-07-02] MEDS ORDERED: VANCOMYCIN 500 MG in IV D5W 100 ML IV PRN (21:00)
[2016-07-02 21:10] LABS: *MYCOPLASMA PNEUMONIAE IgG 165 U/mL (0-99); *MYCOPLASMA PNEUMONIAE IgM <770 U/mL (0-769)
[2016-07-02] MEDS ORDERED: INSULIN DETEMIR 100 UNIT/ML CARTRIDGE SQ SCH ×2 (22:00)
--- NOTE | 2016-07-02 22:29 | NUR ---
ICU/RN AGITATED,GIVEN 1MG ATIVAN IV.WILL MONITOR.
--- NOTE | 2016-07-02 23:30 | NUR ---
ICU/RN CALM AT PRESENT.DENIES PAIN OR DISCOMFORT.REPOSITIONED AFTER SUCTIONED.
[2016-07-02] MEDS: IV NS 0.9% 250 ML IV PRN (23:43)
[2016-07-03] VITALS (37 sets, daily range): BP systolic 112–170; BP diastolic 57–96
[2016-07-03] MEDS: INSULIN REGULAR, HUMAN 100 UNIT/ML 3 ML VIAL SQ PRN ×2 (00:07→17:33)
[2016-07-03] MEDS: BLOOD SUGAR DIAGNOSTIC 1 EACH STRIP IN SCH ×4 (00:11→17:23)
--- NOTE | 2016-07-03 03:00 | NUR ---
ICU/RN INCONTINENT OF LARGE SOFT STOOL,CLEANSED,BED BATH GIVEN AND COMPLETE LINEN CHANGED.
[2016-07-03] MEDS: LORAZEPAM INJ 2 MG/ML VIAL IV PRN (03:20)
--- NOTE | 2016-07-03 03:22 | NUR ---
ICU/RN RESTLESS,BOTH LEGS DANGLING ON RT SIDE OF BED.REPOSITIONED AND GIVEN 1MG ATIVAN IVP.
[2016-07-03 04:49] LABS: CREATININE 5.7 mg/dL (0.6-1.3)
[2016-07-03] MEDS: PIPERACILLIN /TAZOBACTAM 2.25 G in IV D5W 50 ML IV SCH ×4 (05:33→23:52)
--- NOTE | 2016-07-03 05:44 | NUR ---
ICU/RN ACCU CHECK=55.D50 1AMP IVP GIVEN.PT AWAKE FOLLOWS SIMPLE COMMANDS.ORIENTED TO PERSO AND TIME.
--- NOTE | 2016-07-03 06:24 | NUR ---
ICU/RN ACCU ANZCU=018.NO FURTHER ACTION TAKEN.
--- NOTE | 2016-07-03 07:45 | NUR ---
ICU/RN PT IS INTUBATED AC MODE ON THE VENT .V/S STABLE,AFEBRILE.NO PAIN REPORTED AT THIS TIME.OFF SEDATION .NG TUBE INFUSING WITH GLYTROL ,NO RESIDUAL NOTED.IV-TKO.RIGHT FEMORAL HD CATH.F/C DRAINING WITH YELLOW URINE.GENERALIZED EDEMA PRESENT.REDNESS ON ALBINO AREA NOTED.SUCTION PROVIDED REPOSITION FOR COMFORT.BILATERAL SOFT WRIST RESTRAINS ON.
[2016-07-03 07:48] LABS: BASOPHILS % (AUTO) 0.2 % (0.0-2.0); EOSINOPHILS # (AUTO) 0.9 /CMM (0.0-0.7); EOSINOPHILS % (AUTO) 5.6 % (0.0-6.0); HEMATOCRIT 24 % (33-45); HEMOGLOBIN 7.8 g/dL (11.5-14.8); LYMPHOCYTES # (AUTO) 1.7 /CMM (0.8-4.8); LYMPHOCYTES % (AUTO) 10.2 % (20.0-44.0); MEAN CORPUSCULAR HEMOGLOBIN 29 PG (26.0-33.0); MEAN CORPUSCULAR HGB CONC 33 g/dl (31.0-36.0); MEAN CORPUSCULAR VOLUME 86 fL (82-100); MONOCYTES # (AUTO) 0.8 /CMM (0.1-1.30); MONOCYTES % (AUTO) 4.7 % (2.0-12.0); NEUTROPHILS % (AUTO) 79.3 % (43.0-81.0); PLATELET COUNT (AUTO) 234 /CMM (150-450); RDW COEFFICIENT OF VARIATION 17.4 (11.5-15.0); RED BLOOD CELL COUNT(AUTO) 2.73 MIL/uL (4.0-5.2); WHITE BLOOD COUNT (AUTO) 16.4 K/uL (4.3-11.0)
[2016-07-03] MEDS: PANTOPRAZOLE 40 MG VIAL IV SCH (08:20)
[2016-07-03] MEDS: LACTOBACILLUS RHAMNOSUS GG 1 EACH CAP.SPRINK NG SCH ×2 (08:20→16:24)
[2016-07-03] MEDS: PROSOURCE / PROSTAT (PYXIS) 30 ML UDC GT SCH (08:20)
[2016-07-03] MEDS: HEPARIN SODIUM, PORCINE 5000 UNITS/1 ML VIAL SQ SCH ×2 (08:22→20:28)
[2016-07-03] MEDS ORDERED: DC PROPOFOL WHEN EXTUBATED XX PRN (09:00)
--- NOTE | 2016-07-03 09:00 | NUR ---
ICU/RN DUE MEDS ARE GIVEN ORDERED.LABS REVIEW.MD NOTIFIED.
--- NOTE | 2016-07-03 09:30 | NUR ---
PT AWAKE AND ALERT ON AC MODE HOANG WELL. B/S EQUAL LARGE PALE YELLOW SPUTUM. ALARMS SET AND AUDIBLE AMBUBAG AT HEAD OF BED ET TUBE AT 22CM. ZERO DISTRESS NOTED AT THIS TIME. Addendum: 07/03/16 at 0952 by ADRIANNE FOSTER RT Amended: Links added.
--- NOTE | 2016-07-03 09:51 | NUR ---
ET-TUBE ADVANCED 4CM TO 26CM. RN AWARE. Addendum: 07/03/16 at 0952 by ADRIANNE FOSTER RT Amended: Links added.
--- NOTE | 2016-07-03 10:00 | NUR ---
ICU/RN HD IS IN PROCESS.HD NURSE AT BEDSIDE.FAMILY AT BEDSIDE.CONTINUE MONITORING.
[2016-07-03 10:19] LABS: LEGIONELLA PNEUMOPHILIA UR AG Negative (Negative)
--- NOTE | 2016-07-03 12:00 | NUR ---
ICU/RN HD IS OVER 3.2L OUT.PT TOLERATED WELL.FAMILY AT BEDSIDE.
[2016-07-03 12:22] LABS: ABG BASE EXCESS 4.2 mmol/L; ABG OXYGEN SATURATION 98.4 % (92.0-98.5); ABG PCO2 34.4 mmHg (35.0-45.0); ABG PH 7.517 (7.350-7.450); ABG PO2 162.4 mmHg (75.0-100.0); ABG TOTAL HEMOGLOBIN 8.7 G/dL (12.0-16.0); AaDO2 47.2 mmHg; COHb 0.8 % (0.5-1.5); MetHb 0.6 % (0.0-1.5); PEEP,BG 5 cm H2O; SITE, ABG Right Radial; VENT MODE, BG SIMV PSV=12
--- NOTE | 2016-07-03 12:25 | NUR ---
ICU/RN PT IS EXTUBATED.PLACED ON 4L N/C FAMILY AT BEDSIDE.
--- NOTE | 2016-07-03 12:30 | NUR ---
pt extubated per md order. zero distress noted. pt placed on n/c. b/s equal no stridor noted.
[2016-07-03] MEDS: SOD FERRIC GLUC 125 MG in IV NS 0.9% 100 ML IV SCH (14:53)
--- NOTE | 2016-07-03 15:15 | NUR ---
ICU/RN NG TUBE REMOVED ORDERED.RIGHT IJ REMOVED.PT IS AWAKE,ALERT-3-4.,VERY WEAK AND SPEECH DELAYED.FAMILY AT BEDSIDE.
[2016-07-03] MEDS: IV NS 0.9% 250 ML IV PRN (17:24)
[2016-07-03] MEDS ORDERED: DEXTROSE 50%-WATER 50 ML DISP.SYRIN IV PRN (18:00)
--- NOTE | 2016-07-03 18:35 | NUR ---
ICU/RN BS-319.DUE MEDS ARE GIVEN ORDERED.V/S STABLE,AFEBRILE.NO PAIN REPORTED AT THIS TIME.PT HAS MULTIPLY BOWEL MOVEMENT DURING THE DAY.REDNESS AND EXCORIATION NOTED ON ALBINO AREA.Z-GUARD APPLIED.REPOSITION FOR COMFORT.
--- NOTE | 2016-07-03 19:30 | NUR ---
CRUCIBLE FURNACE TENDER: PT. RECEIVED WT EYES CLOSED. ABLE TO WAKE UP, MAKE NEEDS KNOWN WT DELAYED SPEECH AND FOLLOW COMMANDS. ON 4L 02 VIA NC WT NO ACUTE DISTRESS. NO C/O PAIN OR EVIDENCE OF DISCOMFORT. AFEBRILE. SR ON SHIP YARD ELECTRICAL PERSON. F/C PATENT AND INTACT DRAINING YELLOW URINE TO GRAVITY. SAFETY PRECAUTION NOTED. WILL CONTINUE TO MONITOR.
[2016-07-03] MEDS: BLOOD SUGAR DIAGNOSTIC 1 EACH STRIP VI SCH (21:27)
[2016-07-03] MEDS: INSULIN DETEMIR 100 UNIT/ML CARTRIDGE SQ SCH (21:35)
[2016-07-03] MEDS: *INSULIN REGULAR(HUMULIN R)HUM 100 UNIT/ML VIAL SQ PRN (21:40)
[2016-07-04] VITALS (18 sets, daily range): BP systolic 112–172; BP diastolic 63–105
--- NOTE | 2016-07-04 | NUR ---
POOL MANAGER: HAD ONE MEDIUM AMT. OF SOFT FORMED BROWN[place]GRAY[place] STOOL. BED BATH GIVEN AND TOLERATED WELL.
--- NOTE | 2016-07-04 04:00 | NUR ---
PROJECT MGR: PLACED ON 2L 02 VIA NC. NO ACUTE DISTRESS. PT IS MORE ALERT AND ASKING WHAT PROCEDURE WAS DONE FOR HER YESTERDAY. UPDATED HER AND THE CURRENT PLAN OF CARE AND VERBALIZED UNDERSTANDING.
[2016-07-04 04:41] LABS: BASOPHILS # (AUTO) 0.1 /CMM (0.0-0.2); BASOPHILS % (AUTO) 0.4 % (0.0-2.0); EOSINOPHILS # (AUTO) 1.1 /CMM (0.0-0.7); HEMATOCRIT 25 % (33-45); LYMPHOCYTES # (AUTO) 2.9 /CMM (0.8-4.8); LYMPHOCYTES % (AUTO) 18.3 % (20.0-44.0); MEAN CORPUSCULAR HEMOGLOBIN 28 PG (26.0-33.0); MEAN CORPUSCULAR HGB CONC 33 g/dl (31.0-36.0); MEAN CORPUSCULAR VOLUME 86 fL (82-100); MONOCYTES # (AUTO) 1.3 /CMM (0.1-1.30); MONOCYTES % (AUTO) 8.5 % (2.0-12.0); NEUTROPHILS # (AUTO) 10.3 /CMM (1.8-8.9); NEUTROPHILS % (AUTO) 65.8 % (43.0-81.0); PLATELET COUNT (AUTO) 252 /CMM (150-450); RED BLOOD CELL COUNT(AUTO) 2.85 MIL/uL (4.0-5.2); WHITE BLOOD COUNT (AUTO) 15.7 K/uL (4.3-11.0)
[2016-07-04 04:57] LABS: CREATININE 4.6 mg/dL (0.6-1.3); MAGNESIUM 2.2 mg/dL (1.8-2.4); PHOSPHORUS 6.8 mg/dL (2.5-4.9); POTASSIUM 4.7 mmol/L (3.5-5.1)
[2016-07-04] MEDS: PIPERACILLIN /TAZOBACTAM 2.25 G in IV D5W 50 ML IV SCH ×3 (05:32→17:18)
--- NOTE | 2016-07-04 06:15 | NUR ---
CIGAR BRANDER: PT IS SITTING UP ON THE BED AND ABLE TO DANGLE FEET ON THE FLOOR. STILL ON R/A WT NO ACUTE DISTRESS. MORE ALERT AND ABLE TO MAKE NEEDS KNOWN WT A LITTLE BIT OF DELAYED SPEECH. VS WITHIN HER BASELINE. SAFETY PRECAUTION NOTED AT ALL TIMES.
[2016-07-04] MEDS: BLOOD SUGAR DIAGNOSTIC 1 EACH STRIP VI SCH ×4 (07:40→22:05)
--- NOTE | 2016-07-04 07:44 | NUR ---
ICU/RN - Initial Notes Received pt awake in bed, alert to name and place. Reoriented patient to date/time. Delayed speech response noted. Respirations are even and unlabored. On O2 @ 2lpm via nasal cannula, with O2 saturation 100%. On telemetry reading SR 81. Denies pain. Lazo catheter intact draining urine to gravity. FRANKLIN midline intact. Right femoral HD catheter noted. Blood sugar checked 65, pt offered breakfast and encouraged to eat. Safety and comfort measures in place. Will continue to monitor pt closely.
[2016-07-04] MEDS: LACTOBACILLUS RHAMNOSUS GG 1 EACH CAP.SPRINK NG SCH ×2 (08:05→17:17)
[2016-07-04] MEDS: PROSOURCE / PROSTAT (PYXIS) 30 ML UDC GT SCH (08:05)
[2016-07-04] MEDS: PANTOPRAZOLE 40 MG VIAL IV SCH (08:05)
[2016-07-04] MEDS: HEPARIN SODIUM, PORCINE 5000 UNITS/1 ML VIAL SQ SCH ×2 (08:06→22:05)
[2016-07-04] MEDS: VIT B CMPLX 3/FA/VIT C/BIOTIN 1 TAB TABLET PO SCH (10:23)
--- NOTE | 2016-07-04 10:45 | NUR ---
ICU/RN - Notes Pt assisted onto bedside commode. Dark brownish green liquid bowel movement noted. Lazo catheter removed. Will monitor for post void.
[2016-07-04] MEDS: INSULIN REGULAR, HUMAN 100 UNIT/ML 3 ML VIAL SQ PRN ×2 (11:47→17:21)
[2016-07-04] MEDS ORDERED: SECONDARY IV SET 1 EA INFUS.SET MC ONE ×4 (12:14→17:59)
[2016-07-04] MEDS: SEVELAMER CARBONATE 800 MG TABLET PO SCH ×2 (12:21→17:17)
[2016-07-04] MEDS: LEVOFLOXACIN 250 MG /D5W 50 ML 250 MG in PREMIX 1 EA IV SCH (12:21)
[2016-07-04] MEDS ORDERED: EPOETIN ALFA (10,000 UNIT) 10,000 UNIT/ML VIAL SQ ONE (14:00)
[2016-07-04] MEDS: SOD FERRIC GLUC 125 MG in IV NS 0.9% 100 ML IV SCH (14:27)
--- NOTE | 2016-07-04 15:00 | NUR ---
furniture assembler and installer notes Admitted a 26 years old female patient a transfer from ICU, report given by Ezra. Patient came in due to Pneumonia. On 02 @ 2lpm via NC and tolerated well. IV midline intact and patent with Ferritin infusing well. No complaint of pain or discomfort at this time. Vital signs checked and recorded. Picture taken on the left ear and filed in the chart. On tele monitor SR heart rate of 92. Kept patient clean and comfortable in bed, call light with in patient reach, will continue to monitor accordingly.
--- NOTE | 2016-07-04 15:00 | NUR ---
ICU/RN - Transfer Pt transferred to Telemetry 319-1 via ACLS protocols. Report given to MANDY Gu for continuity of care. All belongings taken with pt.
[2016-07-04] MEDS ORDERED: IV SET PRIMARY PUMP SET 1 EA INFUS.SET MC ONE (17:59)
[2016-07-04] MEDS ORDERED: VANCOMYCIN 1 GM in IV D5W 250 ML IV ONE (18:00)
--- NOTE | 2016-07-04 19:19 | NUR ---
telecasting technician closing notes All needs provided, attended, and anticipated. On 02 @ 2lpm via NC and tolerated well. On tele monitor SR heart rate of 92, no pain or discomfort nor chest pain. Kept patient clean and comfortable in bed, call light with in patient reach, will continue to monitor accordingly. Endorsed to next shift RN to continue care.
--- NOTE | 2016-07-04 19:30 | NUR ---
MS/RN NOTES PT RECEIVED AWAKE, SEMI FOWLERS IN BED, FAMILY AT BEDSIDE. ON 2LPM O2 VIA NC, BREATHING EVEN AND UNLABORED. NO S/S OF SOB OR DISTRESS NOTED. DENIES PAIN. ON TELE MONITOR READING ST 101. CURRENTLY RECEIVING DIALYSIS. IV TO FRANKLIN MIDLINE PATENT AND INTACT. BED IN LOW/LOCKED POSITION, CALL LIGHT IN REACH. BED RAILS UPX2. WILL CONTINUE TO MONITOR
--- NOTE | 2016-07-04 21:10 | NUR ---
TELE/RN NOTES HD COMPLETED. 1L OUT LB=756/83, RX=[id number]
[2016-07-04] MEDS: INSULIN DETEMIR 100 UNIT/ML CARTRIDGE SQ SCH (22:00)
--- NOTE | 2016-07-04 22:00 | NUR ---
TELE/RN NOTES NOTIFIED LUSTER APPLICATORDANNA ABOUT PRN VANCO DOSE POST HD. VANCO GIVEN TODAY BY DAY SHIFT RN AT 1759. MOST CURRENT VANCO TROUGH =13. LUSTER APPLICATOR SAID NOT TO [facility] TANKER DRIVER PHARMACIST, WILL CALL PHARMACY AT 0700 TOMORROW AND ASK IF THEY WANT TO REDRAW VANCO TROUGH
--- NOTE | 2016-07-04 22:25 | NUR ---
TELE/RN NOTES PT REFUSED SLIDING SCALE INSULIN AND LEVEMIR. EDUCATED PT BUT PT INSISTED THAT SHE DOES NOT WANT TO TAKE ANY INSULIN BECAUSE HER BLOOD SUGAR DROPS ALOT DURING THE NIGHT. SHE ONLY TAKES IT IF HER PM BLOOD SUGAR IS 200 OR MORE. RESPECTED PT'S WISHES. WILL CONTINUE TO MONITOR
[2016-07-04] MEDS: *INSULIN REGULAR(HUMULIN R)HUM 100 UNIT/ML VIAL SQ PRN (22:27)
[2016-07-05] VITALS: BP 117/67
[2016-07-05] MEDS: PIPERACILLIN /TAZOBACTAM 2.25 G in IV D5W 50 ML IV SCH ×4 (00:54→17:28)
[2016-07-05 04:00] VITALS: BP 95/50
[2016-07-05] MEDS: BLOOD SUGAR DIAGNOSTIC 1 EACH STRIP VI SCH ×4 (06:33→22:19)
[2016-07-05] MEDS: INSULIN REGULAR, HUMAN 100 UNIT/ML 3 ML VIAL SQ PRN ×3 (06:36→22:21)
--- NOTE | 2016-07-05 06:41 | NUR ---
TELE/RN NOTES BLOOD SUGAR 471, RECHECKED ON THE OTHER HAND AND IT WAS 434. ADMINISTERED 15 UNITS OF INSULIN PER SLIDING SCALE. PAGED DR. HURTADO. MEDICAL ASSISTANT SUPERVISOR GILL NOTIFIED
--- NOTE | 2016-07-05 06:45 | NUR ---
TELE/RN NOTES SPOKE TO DR. HURTADO. NO NEW ORDERS AT THIS TIME.
[2016-07-05 06:52] LABS: BASOPHILS % (AUTO) 0.2 % (0.0-2.0); EOSINOPHILS # (AUTO) 0.5 /CMM (0.0-0.7); HEMATOCRIT 24 % (33-45); HEMOGLOBIN 7.5 g/dL (11.5-14.8); LYMPHOCYTES % (AUTO) 19.1 % (20.0-44.0); MEAN CORPUSCULAR HEMOGLOBIN 28 PG (26.0-33.0); MEAN CORPUSCULAR HGB CONC 31 g/dl (31.0-36.0); MEAN CORPUSCULAR VOLUME 88 fL (82-100); MONOCYTES # (AUTO) 1.6 /CMM (0.1-1.30); MONOCYTES % (AUTO) 10.2 % (2.0-12.0); NEUTROPHILS # (AUTO) 10.6 /CMM (1.8-8.9); NEUTROPHILS % (AUTO) 67.5 % (43.0-81.0); PLATELET COUNT (AUTO) 249 /CMM (150-450); RDW COEFFICIENT OF VARIATION 16.6 (11.5-15.0); RED BLOOD CELL COUNT(AUTO) 2.71 MIL/uL (4.0-5.2); WHITE BLOOD COUNT (AUTO) 15.8 K/uL (4.3-11.0)
--- NOTE | 2016-07-05 07:00 | NUR ---
TELE/RN CLOSING NOTES PT AWAKE, A/OX3, ON 2LPM O2 VIA NC, NO SOB OR RESPIRATORY DISTRESS NOTED. ON TELE MONITOR, SINUS ST 104. DENIES PAIN AT THIS TIME. FRANKLIN MIDLINE PATENT AND INTACT. 15 UNITS OF INSULIN ADMINISTERED FOR BLOOD SUGAR >400. DR. HURTADO NOTIFIED WITH NO NEW ORDERS. MADE PT COMFORTABLE THROUGHOUT SHIFT. BED IN LOW/LOCKED POSITION WITH CALL LIGHT IN REACH. ENDORSED TO AM SHIFT TONYA.
--- NOTE | 2016-07-05 07:14 | NUR ---
TELE/RN AM NOTES RECEIVED PATIENT IN BED, SLEEPING, NO SOB NOTED, [address] DELIVERING 2/M VIA N/C, NO S/SX DISTRESS, OR PAIN. HOB ELEVATED 35 DEGREE, COMFORTABLE. RIGHT UPPER MIDLINE INTACT WITH DRY DRESSING. WILL CONTINUE TO MONITOR ACCORDINGLY
[2016-07-05 07:35] LABS: CALCIUM, SERUM 8.3 mg/dL (8.5-10.1); CREATININE 4.7 mg/dL (0.6-1.3); MAGNESIUM 2.2 mg/dL (1.8-2.4); PHOSPHORUS 6.2 mg/dL (2.5-4.9); POTASSIUM 5.4 mmol/L (3.5-5.1)
[2016-07-05 08:00] VITALS: BP 106/50
--- NOTE | 2016-07-05 08:11 | NUR ---
WOUND CARE CONSULT WAS CALLED TO ASSESS LEFT EAR. PATIENT ALERT, ORIENTED, INDEPENDENT WITH BED MOBILITY, AMBULATORY, CONTINENT, PACHECO 16. PATIENT PRESENTS WITH LEFT EAR SKIN TEAR IN HEALING STAGES. SEE TODAY'S SKIN ASSESSMENT IN [facility]CS ALONG WITH RECOMMENDATION DISCUSSED WITH NURSING STAFF. MD IN AGREEMENT WITH PLAN OF CARE. Addendum: 07/05/16 at 0813 by EMIGDIO GOMEZ WNDNU Amended: Links added.
[2016-07-05] MEDS: VIT B CMPLX 3/FA/VIT C/BIOTIN 1 TAB TABLET PO SCH (08:37)
[2016-07-05] MEDS: LACTOBACILLUS RHAMNOSUS GG 1 EACH CAP.SPRINK NG SCH ×2 (08:37→17:31)
[2016-07-05] MEDS: SEVELAMER CARBONATE 800 MG TABLET PO SCH ×3 (08:37→17:31)
[2016-07-05] MEDS: PROSOURCE / PROSTAT (PYXIS) 30 ML UDC GT SCH (08:37)
[2016-07-05] MEDS: PANTOPRAZOLE 40 MG VIAL IV SCH (08:37)
[2016-07-05] MEDS: HEPARIN SODIUM, PORCINE 5000 UNITS/1 ML VIAL SQ SCH ×2 (08:40→21:00)
[2016-07-05] MEDS: NEOMY SULF/BACITRAC ZN/POLY 15 GM TUBE TP SCH (08:43)
[2016-07-05] MEDS ORDERED: INSULIN GLARGINE, 100 UNIT/ML CARTRIDGE SQ SCH (11:00)
--- NOTE | 2016-07-05 11:00 | NUR ---
DR. 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 PER DOCTOR HEMODIALYSIS SCHEDULED TOMORROW 07/06/16. PATIENT VERBALIZED UNDERSTANDING, NOTED CARRIED OUT ORDERS
[2016-07-05] MEDS ORDERED: INSULIN GLARGINE, 100 UNIT/ML CARTRIDGE SQ ONE (11:30)
[2016-07-05] MEDS ORDERED: INSULIN DETEMIR 100 UNIT/ML CARTRIDGE SQ ONE (11:30)
--- NOTE | 2016-07-05 12:15 | NUR ---
DR. SEBASTIAN VISITED, EXAMINED PATIENT WITH ORDERS OF LEVEMIR 15 UNITS X 1 NOW SQ, GIVEN TO THE PATIENT ORDERED. ADDITIONAL SLIDING SCALE COVERAGE ORDERED. TOLERATED WELL. PATIENT HAS GOOD APPETITE, LUNCH TRAY AT THE BEDSIDE. WILL CONTINUE TO MONITOR CLOSELY
[2016-07-05] MEDS: ALBUTEROL FS 2.5 MG/3 ML VIAL.NEB NEB SCH ×4 (14:45→23:30)
--- NOTE | 2016-07-05 15:41 | NUR ---
RT NOTE TX GIVEN AT 1500
[2016-07-05 16:00] VITALS: BP 145/69
--- NOTE | 2016-07-05 18:43 | NUR ---
TELE/RN CLOSING NOTES PATIENT C/O DIARRHEA X 6, WATERY, WITHOUT SMELL, DENIES PAIN. PAGED DR. SEBASTIAN WILL WAIT MD FOR ADVISE. PATIENT SITTING ON THE CHAIR NEXT TO THE BED, AWAKE, ALERT, WITHOUT SOB, O2 IN PLACE N/C DELIVERING 2L/M, TOLERATING WELL. NO S/SX HYPO OR HYPERGLYCEMIA NOTED. IV MID LINE RIGHT UPPER ARM PATENT, NO REDNESS OR INFLAMMATION. PATIENT'S AND FAMILY NEEDS ANTICIPATED IN TIMELY MANNER WITH CALL LIGHT WITHIN EASY REACH ALL THE TIME. WILL ENDORSE TO THE IN FILE OPERATOR
--- NOTE | 2016-07-05 19:35 | NUR ---
TELE/RN OPENING NOTES PT AWAKE, SITTING UP IN BED. A/OX4, BOYFRIEND AT BEDSIDE. ON 2LPM O2 VIA NC, NO SOB OR DISTRESS NOTED. BREATHING EVEN AND UNLABORED. DENIES PAIN. ON TELE MONITOR, SINUS RHYTHM HR AT 95. FRANKLIN MIDLINE PATENT AND INTACT. BED IN LOW/LOCKED POSITION, CALL LIGHT IN REACH. BED ALARM ON. WILL CONTINUE TO MONITOR
[2016-07-05 20:13] LABS: SUBTYPE NOVEL H1N1 PCR Negative (Negative)
[2016-07-05 20:42] VITALS: BP_SYST 164; BP_SYST 169; BP_DIAS 94; BP_DIAS 96
--- NOTE | 2016-07-05 21:00 | NUR ---
TELE/RN NOTES NON-ADMINISTERED HEPARIN. HGB=7.5
[2016-07-05] MEDS: INSULIN DETEMIR 100 UNIT/ML CARTRIDGE SQ SCH (22:23)
[2016-07-06] VITALS (7 sets, daily range): BP systolic 138–174; BP diastolic 82–105
[2016-07-06] MEDS: PIPERACILLIN /TAZOBACTAM 2.25 G in IV D5W 50 ML IV SCH ×4 (00:06→18:25)
[2016-07-06] MEDS: ALBUTEROL FS 2.5 MG/3 ML VIAL.NEB NEB SCH ×4 (03:44→14:36)
[2016-07-06 07:00] LABS: CALCIUM, SERUM 8.4 mg/dL (8.5-10.1); CREATININE 6.3 mg/dL (0.6-1.3)
[2016-07-06] MEDS: BLOOD SUGAR DIAGNOSTIC 1 EACH STRIP VI SCH ×4 (07:16→22:00)
--- NOTE | 2016-07-06 07:16 | NUR ---
TELE/RN NOTES BLOOD SUGAR 81, NO INSULIN COVERAGE PER SLIDING SCALE
--- NOTE | 2016-07-06 07:25 | NUR ---
TELE/RN CLOSING NOTES PT AWAKE, SITTING IN THE CHAIR. ON 2LPM 02 VIA NC, BREATHING EVEN AND UNLABORED, NO SOB OR DISTRESS NOTED. DENIES PAIN. TELE MONITOR, SINUS TACH HR AT 100. FRANKLIN MIDLINE PATENT AND INTACT. RIGHT FEMORAL HD CATH IN PLACE, HD SCHEDULED TODAY. MADE PT COMFORTABLE THROUGHOUT SHIFT. ALL NEEDS MET AND ATTENDED TO. SNACKS PROVIDED AT BEDSIDE THROUGHOUT SHIFT. BED IN LOW/LOCKED POSITION, CALL LIGHT IN REACH. ENDORSED TO AM SHIFT TONYA.
--- NOTE | 2016-07-06 07:30 | NUR ---
TELE/RN AM NOTES RECEIVED PATIENT SITTING ON THE CHAIR, NEXT TO THE BED, NO SOB, O2 IN PLACE N/C 2L/M TOLERATING WELL, DENIES PAIN. REMAINS ON TELE MONITOR HR 100. IV LINE RIGHT UPPER ARM PATENT. NEEDS MET, WITH CALL LIGHT WITHIN EASY REACH. WILL CONTINUE TO MONITOR ACCORDINGLY
[2016-07-06] MEDS: ACETAMINOPHEN 325 MG TABLET PO PRN ×2 (08:43→15:56)
[2016-07-06] MEDS: SEVELAMER CARBONATE 800 MG TABLET PO SCH ×3 (08:44→18:05)
[2016-07-06] MEDS: VIT B CMPLX 3/FA/VIT C/BIOTIN 1 TAB TABLET PO SCH (08:44)
[2016-07-06] MEDS: PROSOURCE / PROSTAT (PYXIS) 30 ML UDC GT SCH (08:44)
[2016-07-06] MEDS: PANTOPRAZOLE 40 MG VIAL IV SCH (08:44)
[2016-07-06] MEDS: LACTOBACILLUS RHAMNOSUS GG 1 EACH CAP.SPRINK NG SCH ×2 (08:44→18:05)
[2016-07-06] MEDS: HEPARIN SODIUM, PORCINE 5000 UNITS/1 ML VIAL SQ SCH (08:48)
[2016-07-06] MEDS: NEOMY SULF/BACITRAC ZN/POLY 15 GM TUBE TP SCH (08:49)
[2016-07-06] MEDS: RENAL NOVASOURCE (8OZ) 1 EA BOX PO SCH (09:07)
[2016-07-06] MEDS ORDERED: EPOETIN ALFA (10,000 UNIT) 10,000 UNIT/ML VIAL IV ONE (11:00)
[2016-07-06] MEDS ORDERED: EPOETIN ALFA (20,000 UNIT) 20,000 UNIT/ML VIAL IV ONE (12:00)
[2016-07-06] MEDS: INSULIN REGULAR, HUMAN 100 UNIT/ML 3 ML VIAL SQ PRN ×2 (12:16→18:13)
--- NOTE | 2016-07-06 12:22 | NUR ---
JING/MANDY NGOGEN GIVEN 20,000 UNITS ORDERED Addendum: 07/06/16 at 1223 by KADEEM LUIS RN HEMOGLOBIN LEVEL 7.5
[2016-07-06] MEDS ORDERED: SECONDARY IV SET 1 EA INFUS.SET MC ONE (12:26)
[2016-07-06 12:30] LABS: HEPATITIS B SURFACE AB Non Reactive (.); HEPATITIS C VIRUS AB <0.1 s/co ratio (0.0-0.9)
--- NOTE | 2016-07-06 13:20 | NUR ---
DR. COOPER VISITED, EXAMINED PATIENT. ORDERED TO CHECK PATIENTS O2 SAT IN RA. AND KEEP OF IF OVER 93%. OXYGEN KEPT OFF FOR 15 MINUTES, READING NOTED 94% IN RA. RECHECKED IN 15 MINUTES SECOND TIME 95% RA, NO SOB, TOLERATING WELL, DENIES PAIN. WILL CONTINUE TO MONITOR CLOSELY
[2016-07-06] MEDS ORDERED: IV SET PRIMARY PUMP SET 1 EA INFUS.SET MC ONE (13:29)
[2016-07-06] MEDS ORDERED: LOPERAMIDE HCL (2 MG CAP) 2 MG CAPSULE PO PRN (13:30)
[2016-07-06] MEDS: LEVOFLOXACIN 250 MG /D5W 50 ML 250 MG in PREMIX 1 EA IV SCH (14:27)
--- NOTE | 2016-07-06 16:11 | NUR ---
DR. FORBES VISITED, EXAMINED PATIENT, INFORMED ABOUT PATIENT BLOOD PRESSURE READING 157/100, 110, WITH NO NEW ORDERS. SPOKE WITH PATIENTS OWN DRAWSTRING KNOTTER DR. JHONNY QUEVEDO ABOUT PATIENT PLAN OF CARE
[2016-07-06] MEDS ORDERED: ALBUTEROL FS 2.5 MG/3 ML VIAL.NEB NEB PRN (19:00)
--- NOTE | 2016-07-06 19:15 | NUR ---
MS/RN CLOSING NOTES PATIENT IS IN BED, AWAKE, ALERT, DENIES SOB, COMFORTABLE IN THE BED, BLOOD SUGAR CHECKED BEFORE DINNER 275, GIVEN 9 UNITS REGULAR INSULIN COVERAGE. DINNER TOLERATED WELL, WITH GOOD APPETITE. DIALYSIS DONE, TOLERATED WELL, 1500 ML FLUID OUTPUT. IV LINE INTACT RIGHT UPPER ARM. NEEDS MET IN TIMELY MANNER WITH CALL LIGHT WITHIN EASY REACH. ENDORSED TO THE STEAM AND POWER SUPERINTENDENT NURSE
--- NOTE | 2016-07-06 19:45 | NUR ---
RN OPENING NOTES RECEIVED REPORT FROM KAYLYN RN. Pt IS A/OX4, VERBAL, ABLE TO MAKE NEEDS KNOWN. FOUND Pt AWAKE IN BED WITH FAMILY VISITING AT BEDSIDE. NO S/S OF ACUTE DISTRESS OR SOB NOTED. DENIES PAIN AT THIS TIME. IV ACCESS FRANKLIN MIDLINE AND FEMORAL HD CATH ACCESS. NPO AFTER BREAKFAST FOR NEW FISTULA INSERTION PROCEDURE ON 07/07. SAFETY MEASURES IN PLACE. BED LOW, LOCKED, HOB ELEVATED, SIDE RAILS UP, CALL LIGHT AND BEDSIDE TABLE WITHIN REACH. WILL CONTINUE TO MONITOR Pt THROUGHOUT THE SHIFT.
[2016-07-06] MEDS: METRONIDAZOLE 500 MG TABLET PO SCH (22:00)
--- NOTE | 2016-07-06 22:00 | NUR ---
RN NOTES ACCUCHECK @2200 BG 279. ADMINISTERED SCHEDULED LEVEMIR 30UN. PROVIDED SNACKS AT BEDSIDE. WILL CONTINUE TO MONITOR Pt's BG LEVELS.
[2016-07-06] MEDS: INSULIN DETEMIR 100 UNIT/ML CARTRIDGE SQ SCH (22:06)
[2016-07-07] MEDS: METRONIDAZOLE 500 MG TABLET PO SCH ×3 (05:10→20:07)
[2016-07-07 05:14] VITALS: BP 155/84
--- NOTE | 2016-07-07 06:55 | NUR ---
RN CLOSING NOTES NO SIGNIFICANT CHANGES DURING THE SHIFT. ALL NEEDS MET AND ATTENDED TO. SAFETY MEASURES CARRIED OUT. NO S/S OF ACUTE DISTRESS OR SOB NOTED. WILL ENDORSE TO DAYSHIFT RN FOR Pt's TONYA & SAFETY.
[2016-07-07] MEDS: BLOOD SUGAR DIAGNOSTIC 1 EACH STRIP VI SCH ×4 (07:10→22:08)
--- NOTE | 2016-07-07 07:10 | NUR ---
BG 82. NO INSULIN COVERAGE NEEDED.
--- NOTE | 2016-07-07 07:10 | NUR ---
MS RN INITIAL NOTES RECEIVED PATIENT IN BED, A/O X4. BREATHING EVEN AND NON LABORED, NO SOB NOTED. PATIENT IS ON NPO STATUS ORDERED, FOR POSSIBLE HD CATH PLACEMENT TODAY. PATIENT IS AWARE. FRANKLIN MIDLINE PATENT AND INTACT, FLUSHES WELL. APPEARS COMFORTABLY RESTING IN BED, NO C/O PAIN AT THIS TIME. CALL LIGHT WITHIN REACH. WILL CONT TO MONITOR.
[2016-07-07 07:46] LABS: CALCIUM, SERUM 8.3 mg/dL (8.5-10.1); CREATININE 5.1 mg/dL (0.6-1.3); POTASSIUM 4.2 mmol/L (3.5-5.1)
[2016-07-07 08:00] VITALS: BP_SYST 131; BP_DIAS 80; BP_DIAS 82
[2016-07-07] MEDS: SEVELAMER CARBONATE 800 MG TABLET PO SCH ×3 (08:00→17:56)
[2016-07-07 08:34] LABS: BASOPHILS # (AUTO) 0.1 /CMM (0.0-0.2); BASOPHILS % (AUTO) 0.4 % (0.0-2.0); EOSINOPHILS # (AUTO) 0.4 /CMM (0.0-0.7); EOSINOPHILS % (AUTO) 2.9 % (0.0-6.0); HEMATOCRIT 24 % (33-45); HEMOGLOBIN 7.9 g/dL (11.5-14.8); LYMPHOCYTES # (AUTO) 2.4 /CMM (0.8-4.8); LYMPHOCYTES % (AUTO) 16.6 % (20.0-44.0); MEAN CORPUSCULAR HEMOGLOBIN 29 PG (26.0-33.0); MEAN CORPUSCULAR HGB CONC 32 g/dl (31.0-36.0); MEAN CORPUSCULAR VOLUME 89 fL (82-100); MONOCYTES # (AUTO) 1.6 /CMM (0.1-1.30); MONOCYTES % (AUTO) 11.3 % (2.0-12.0); NEUTROPHILS # (AUTO) 9.9 /CMM (1.8-8.9); NEUTROPHILS % (AUTO) 68.8 % (43.0-81.0); PLATELET COUNT (AUTO) 324 /CMM (150-450); RDW COEFFICIENT OF VARIATION 15.6 (11.5-15.0); RED BLOOD CELL COUNT(AUTO) 2.76 MIL/uL (4.0-5.2); WHITE BLOOD COUNT (AUTO) 14.4 K/uL (4.3-11.0)
[2016-07-07] MEDS: LACTOBACILLUS RHAMNOSUS GG 1 EACH CAP.SPRINK NG SCH ×2 (09:00→18:01)
[2016-07-07] MEDS: VIT B CMPLX 3/FA/VIT C/BIOTIN 1 TAB TABLET PO SCH (09:00)
[2016-07-07] MEDS: RENAL NOVASOURCE (8OZ) 1 EA BOX PO SCH (09:00)
[2016-07-07] MEDS: PROSOURCE / PROSTAT (PYXIS) 30 ML UDC GT SCH (09:00)
[2016-07-07] MEDS: PANTOPRAZOLE 40 MG VIAL IV SCH (09:02)
[2016-07-07] MEDS: NEOMY SULF/BACITRAC ZN/POLY 15 GM TUBE TP SCH (09:07)
[2016-07-07] MEDS: INSULIN REGULAR, HUMAN 100 UNIT/ML 3 ML VIAL SQ PRN ×2 (11:54→17:58)
--- NOTE | 2016-07-07 11:54 | NUR ---
BS 85MG/DL. NO INSULIN GIVEN, NO COVERAGE.
[2016-07-07] MEDS ORDERED: LIDOCAINE HCL/PF 1% 30 ML SDV ONE (14:55)
[2016-07-07] MEDS ORDERED: HEPARIN SODIUM, PORCINE 1,000 UNIT/ML VIAL ONE (14:55)
[2016-07-07 16:00] VITALS: BP 160/92
[2016-07-07 16:13] LABS: *HIV-1 RNA BY PCR <20 copies/mL (.)
--- NOTE | 2016-07-07 16:21 | NUR ---
RECEIVED PHONE CALL FROM DR. TRAN, PER SURGERY-HD CATH PLACEMENT NOT TO DONE TODAY AND HE WILL CALL THE STAFF TO RESCHEDULED IT, POSSIBLY ON TUESDAY MORNING, PER MD HE WILL MAKE SURE HE WILL CALL THE STAFF TO UPDATE HIS AVAILABILITY. INFORMED FAMILY AND THE PATIENT, VERBALIZED UNDERSTANDING. RESUME PREVIOUS DIET ORDERED.
[2016-07-07] MEDS: ACETAMINOPHEN 325 MG TABLET PO PRN (18:01)
--- NOTE | 2016-07-07 18:04 | NUR ---
BS 262MG/DL. GIVEN 9 UNITS INSULIN REGULAR SC PER ISS COVERAGE. PATIENT C/O HEADACHE 06/25, GIVEN TYLENOL 650MG PO PRN, WILL RE ASSESS.
[2016-07-07] MEDS ORDERED: LOPERAMIDE HCL (2 MG CAP) 2 MG CAPSULE PO PRN (19:00)
--- NOTE | 2016-07-07 19:41 | NUR ---
MS RN CLOSING NOTES PATIENT IN BED, AWAKE, NOT IN DISTRESS. BLOOD SUGAR MONITORED, WITH ISS COVERAGE. NO C/O PAIN AT THIS TIME. FOR HD TREATMENT TOMORROW PER DR. FORBES, PATIENT IS AWARE. CALL LIGHT WITHIN REACH. ENDORSED TO PIPE STEM SAWYER RN FOR CONTINUITY OF CARE.
--- NOTE | 2016-07-07 19:55 | NUR ---
RN OPENING NOTES RECEIVED REPORT FROM ANH PATIÑO RN. Pt IS A/OX4, VERBAL, ABLE TO MAKE NEEDS KNOWN. FOUND Pt AWAKE IN BED, WITH BOYFRIEND VISITING AT BEDSIDE. NO S/S OF ACUTE DISTRESS OR SOB NOTED. Pt REQUESTED FOR HER PRN IMODIUM, DUE TO HER DIARRHEA. SAFETY MEASURES IN PLACE. BED LOW, LOCKED, HOB ELEVATED, SIDE RAILS UP, CALL LIGHT AND BEDSIDE TABLE WITHIN REACH. WILL CONTINUE TO MONITOR Pt THROUGHOUT THE NIGHT.
[2016-07-07 19:59] VITALS: BP 147/82
[2016-07-07 22:00] VITALS: BP 147/82
[2016-07-07] MEDS: INSULIN DETEMIR 100 UNIT/ML CARTRIDGE SQ SCH (22:12)
--- NOTE | 2016-07-07 22:16 | NUR ---
RN NOTES BG 267. ADMINISTERED SCHEDULED LEVEMIR. NO ADDITIONAL COVERAGE GIVEN PER Pt's REQUEST. Pt STATES THAT HER BG DROPS IN THE AM.
[2016-07-08] MEDS: METRONIDAZOLE 500 MG TABLET PO SCH ×3 (05:07→21:00)
--- NOTE | 2016-07-08 06:56 | NUR ---
RN CLOSING NOTES NO SIGNIFICANT CHANGES DURING THE NIGHT. NO S/S OF ACUTE DISTRESS OR SOB NOTED. SAFETY MEASURES IN PLACE. ALL NEEDS MET AND ATTENDED TO. WILL ENDORSE TO DAYSHIFT RN FOR Pt's TONYA.
[2016-07-08] MEDS: BLOOD SUGAR DIAGNOSTIC 1 EACH STRIP VI SCH ×4 (07:02→21:00)
--- NOTE | 2016-07-08 07:02 | NUR ---
RN NOTES AC BG 45. Pt AWAKE AND ALERT, RESPONSIVE. PROVIDED OJ AT BEDSIDE. WILL ADMINISTER PRN DEXTROSE.
--- NOTE | 2016-07-08 07:07 | NUR ---
RN NOTES Pt REFUSING DEXTROSE AT THIS TIME BC BG TENDS TO GO UP IN THE 260's LATER IN THE DAY. STATED THE OJ SHOULD SUFFICE FOR NOW SINCE BREAKFAST WILL BE HERE SOON. WILL RECHECK BG LEVEL.
[2016-07-08 07:15] LABS: BASOPHILS # (AUTO) 0.1 /CMM (0.0-0.2); BASOPHILS % (AUTO) 0.5 % (0.0-2.0); EOSINOPHILS # (AUTO) 0.8 /CMM (0.0-0.7); EOSINOPHILS % (AUTO) 6.2 % (0.0-6.0); HEMATOCRIT 24 % (33-45); HEMOGLOBIN 7.8 g/dL (11.5-14.8); LYMPHOCYTES % (AUTO) 23.6 % (20.0-44.0); MEAN CORPUSCULAR HEMOGLOBIN 29 PG (26.0-33.0); MEAN CORPUSCULAR HGB CONC 32 g/dl (31.0-36.0); MEAN CORPUSCULAR VOLUME 89 fL (82-100); MONOCYTES # (AUTO) 1.2 /CMM (0.1-1.30); MONOCYTES % (AUTO) 9.2 % (2.0-12.0); NEUTROPHILS # (AUTO) 7.8 /CMM (1.8-8.9); NEUTROPHILS % (AUTO) 60.5 % (43.0-81.0); PLATELET COUNT (AUTO) 341 /CMM (150-450); RDW COEFFICIENT OF VARIATION 16.3 (11.5-15.0); RED BLOOD CELL COUNT(AUTO) 2.71 MIL/uL (4.0-5.2); WHITE BLOOD COUNT (AUTO) 12.8 K/uL (4.3-11.0)
--- NOTE | 2016-07-08 07:27 | NUR ---
RN NOTES RECHECKED BG. WENT DOWN TO 41. ADMINISTERED DEXTROSE 50. Pt IS ALERT, AND AWAKE, AND RESPONSIVE. WILL ENDORSE TO DAYSHIFT RN TO RECHECK BG LEVELS.
--- NOTE | 2016-07-08 07:30 | NUR ---
MS RN INITIAL NOTES RECEIVED PATIENT AWAKE, IN BED. A/O X4. EPISODE OF LOW LEVEL FBS PER NIGHT RN. PATIENT NOT IN DISTRESS, BREATHING EVEN AND NON LABORED. NO SOB NOTED. CALL LIGHT WITHIN REACH. WILL CONT TO MONITOR.
[2016-07-08 07:34] LABS: CALCIUM, SERUM 8.2 mg/dL (8.5-10.1); MAGNESIUM 2.4 mg/dL (1.8-2.4); PHOSPHORUS 4.8 mg/dL (2.5-4.9); POTASSIUM 4.2 mmol/L (3.5-5.1)
--- NOTE | 2016-07-08 07:45 | NUR ---
RN NOTES BG RECHECKED. BG 127. Pt AWAKE, ALERT, AND RESPONSIVE. NO COVERAGE NEEDED AT THIS TIME.
[2016-07-08 08:00] VITALS: BP 150/85
[2016-07-08] MEDS: PANTOPRAZOLE 40 MG VIAL IV SCH (08:44)
[2016-07-08] MEDS: LACTOBACILLUS RHAMNOSUS GG 1 EACH CAP.SPRINK NG SCH ×2 (08:45→17:34)
[2016-07-08] MEDS: SEVELAMER CARBONATE 800 MG TABLET PO SCH ×3 (08:45→17:34)
[2016-07-08] MEDS: VIT B CMPLX 3/FA/VIT C/BIOTIN 1 TAB TABLET PO SCH (08:45)
[2016-07-08] MEDS: NEOMY SULF/BACITRAC ZN/POLY 15 GM TUBE TP SCH (08:53)
[2016-07-08] MEDS: PROSOURCE / PROSTAT (PYXIS) 30 ML UDC GT SCH (08:57)
[2016-07-08] MEDS: RENAL NOVASOURCE (8OZ) 1 EA BOX PO SCH (08:57)
[2016-07-08] MEDS ORDERED: EPOETIN ALFA (20,000 UNIT) 20,000 UNIT/ML VIAL IV ONE (11:00)
[2016-07-08] MEDS: INSULIN REGULAR, HUMAN 100 UNIT/ML 3 ML VIAL SQ PRN ×2 (12:56→17:34)
[2016-07-08] MEDS ORDERED: LEVOFLOXACIN (250MG) 250 MG TABLET PO SCH (13:00)
--- NOTE | 2016-07-08 13:02 | NUR ---
BS 229MG/DL. GIVEN 6 UNITS INSULIN REGULAR SQ PER ISS COVERAGE.
[2016-07-08 16:00] VITALS: BP 152/98
--- NOTE | 2016-07-08 17:36 | NUR ---
BS 165MG/DL. GIVEN 3 UNITS INSULIN REGULAR SQ PER ISS COVERAGE.
--- NOTE | 2016-07-08 17:41 | NUR ---
SPOKE TO NURSE WEBB/OR, PER TRACEY, DR. TRAN SCHEDULED PERMACATH PLACEMENT TOMORROW 07/09/16 AT 0700. PATIENT AND FAMILY INFORMED, PATIENT WILL BE NPO MN FOR THE PROCEDURE.
--- NOTE | 2016-07-08 18:31 | NUR ---
MS RN CLOSING NOTES PATIENT AWAKE SITTING IN THE CHAIR. BLOOD SUGAR MONITORED, NO S/S OF HYPO/HYPERGLYCEMIA. ON ANTIBIOTIC WITH NO ADVERSE REACTION NOTED, AFEBRILE, NO DIARRHEA. PATIENT TO HAVE DIALYSIS TREATMENT TODAY, PER KENNETH/DIALYSIS NURSE AT 1999. PATIENT WILL BE NPO MIDNIGHT FOR PERMACATH PLACEMENT TOMORROW AT [address] TRAN. WILL ENDORSE TO CANDY DEPARTMENT MANAGER RN FOR CONTINUITY OF CARE AND TO GIVE EPOGEN IV WITH HD PER DR. FORBES.
--- NOTE | 2016-07-08 18:42 | NUR ---
RECEIVED PHONE CALL FROM DR. TRAN, PER MD PATIENT IS SCHEDULE FOR PERMACATH PLACEMENT TOMORROW AT 0700. CONSENT SIGNED AND PLACE IN THE CHART.
--- NOTE | 2016-07-08 19:30 | NUR ---
RN NOTES RECEIVED PT AWAKE ON BED, DENIES ANY PAIN, FRIEND AT BEDSIDE, CALL LIGHT WITHIN REACH, SDIERAILS UPX2 CONTINUE TO MONITOR
--- NOTE | 2016-07-08 19:30 | NUR ---
MANDY NOTES CALLED TRUDY AND FOLLOW UP THE DIALYSIS NURSE Addendum: 07/09/16 at 0222 by JOSEY TAMAYO RN RIGHT TIME [id number]
[2016-07-08 20:00] VITALS: BP 186/112
[2016-07-08] MEDS: INSULIN DETEMIR 100 UNIT/ML CARTRIDGE SQ SCH (21:08)
--- NOTE | 2016-07-08 22:00 | NUR ---
RN NOTES PT. BLOOD SUGAR 244- PT JUST WANT TO RECEIVE 10UNITS OF LEVEMIR BECAUSE YESTERDAY PT BLOOD SUGAR DROPPED TO 41 AND PT. REFUSED INSULIN COVERAGE BECAUSE TOMORROW SHE'S GOING TO HAVE A PERMA CATH PLACEMENT
--- NOTE | 2016-07-08 22:10 | NUR ---
RN NOTES DIALYSIS NURSE CAME
[2016-07-09] MEDS: METRONIDAZOLE 500 MG TABLET PO SCH ×2 (05:00→12:09)
--- NOTE | 2016-07-09 06:00 | NUR ---
RN NOTES BLOOD SUGAR 164- NO COVERAGE GIVEN -NPO FOR SURGERY
[2016-07-09 06:37] LABS: INR 1.24 (0.87-1.13); PROTHROMBIN TIME 13.4 SECS (9.5-12.7)
[2016-07-09] MEDS ORDERED: LIDOCAINE HCL/PF 1% 30 ML SDV ONE (06:38)
[2016-07-09] MEDS ORDERED: HEPARIN SODIUM, PORCINE 1,000 UNIT/ML VIAL ONE (06:38)
--- NOTE | 2016-07-09 06:44 | NUR ---
RN NOTES PT. SEND TO OR , FAMILY AT BEDSIDE, DENIES PAIN, NO SOB, V/S STABLE
[2016-07-09 06:48] LABS: BASOPHILS % (AUTO) 0.3 % (0.0-2.0); CALCIUM, SERUM 8.3 mg/dL (8.5-10.1); CREATININE 6.3 mg/dL (0.6-1.3); EOSINOPHILS # (AUTO) 0.9 /CMM (0.0-0.7); EOSINOPHILS % (AUTO) 6.1 % (0.0-6.0); HEMATOCRIT 25 % (33-45); HEMOGLOBIN 8.1 g/dL (11.5-14.8); LYMPHOCYTES # (AUTO) 2.2 /CMM (0.8-4.8); LYMPHOCYTES % (AUTO) 15.4 % (20.0-44.0); MAGNESIUM 2.2 mg/dL (1.8-2.4); MEAN CORPUSCULAR HEMOGLOBIN 29 PG (26.0-33.0); MEAN CORPUSCULAR HGB CONC 32 g/dl (31.0-36.0); MEAN CORPUSCULAR VOLUME 90 fL (82-100); MONOCYTES % (AUTO) 7.1 % (2.0-12.0); NEUTROPHILS # (AUTO) 10.3 /CMM (1.8-8.9); NEUTROPHILS % (AUTO) 71.1 % (43.0-81.0); PHOSPHORUS 5.3 mg/dL (2.5-4.9); PLATELET COUNT (AUTO) 389 /CMM (150-450); POTASSIUM 3.9 mmol/L (3.5-5.1); RDW COEFFICIENT OF VARIATION 16.6 (11.5-15.0); RED BLOOD CELL COUNT(AUTO) 2.84 MIL/uL (4.0-5.2); WHITE BLOOD COUNT (AUTO) 14.5 K/uL (4.3-11.0)
[2016-07-09 08:00] VITALS: BP 126/69
[2016-07-09] MEDS: SEVELAMER CARBONATE 800 MG TABLET PO SCH ×2 (08:00→12:09)
--- NOTE | 2016-07-09 08:30 | NUR ---
RETURNED FROM OR AFTER PERMA CAT PLACEMENT. PT. AWAKE, ALERT AND ORIENTED X4. DENIED PAIN AND SOB. RT FEMORAL CATH HAS BEEN REMOVED AT OR. NO BLEEDING NOTED. NEW PERMA CATH ON RT CHEST. DRESSING DRY AND INTACT. CALL LIGHT WITHIN REACH. SIDE RAILS UP. MONITOR CLOSELY.
[2016-07-09] MEDS: RENAL NOVASOURCE (8OZ) 1 EA BOX PO SCH ×2 (08:46→09:00)
[2016-07-09] MEDS: PANTOPRAZOLE 40 MG VIAL IV SCH (08:46)
[2016-07-09] MEDS: PROSOURCE / PROSTAT (PYXIS) 30 ML UDC GT SCH ×2 (09:00→09:21)
--- NOTE | 2016-07-09 09:00 | NUR ---
PT. WANTS TO DISCHARGE DESIREE. RT. PERMA CATH DRESSING DRY AND INTACT. THERE IS NO BLEEDING ON RT. FEMORAL. MONITOR CLOSELY.
[2016-07-09] MEDS: LACTOBACILLUS RHAMNOSUS GG 1 EACH CAP.SPRINK NG SCH (09:21)
[2016-07-09] MEDS: VIT B CMPLX 3/FA/VIT C/BIOTIN 1 TAB TABLET PO SCH (09:21)
[2016-07-09] MEDS: NEOMY SULF/BACITRAC ZN/POLY 15 GM TUBE TP SCH (09:25)
--- NOTE | 2016-07-09 11:00 | NUR ---
DR. SEBASTIAN AT THE BEDSIDE. SPOKE WITH PT AND FAMILY.
--- NOTE | 2016-07-09 11:15 | NUR ---
HEMODIALYSIS AT THE BEDSIDE NOW. PT. WILL BE DISCHARGE AFTER HD DONE.
[2016-07-09] MEDS ORDERED: SEVE800T PO (11:46)
[2016-07-09] MEDS ORDERED: LEVO250T2 PO (11:46)
[2016-07-09] MEDS: BLOOD SUGAR DIAGNOSTIC 1 EACH STRIP VI SCH (12:00)
[2016-07-09] MEDS: INSULIN REGULAR, HUMAN 100 UNIT/ML 3 ML VIAL SQ PRN (12:07)
--- NOTE | 2016-07-09 13:20 | NUR ---
HEMODIALYSIS DONE. GIVEN DISCHARGE INSTRUCTION TO PT AND FAMILY. UNDERSTOOD WELL. REMOVED MIDLINE. DISCHARGED FROM [facility] WITH FAMILY.
== END 2016-07-09 13:15 | disposition home or self-care (01) | DRG 871 ==
LOC: ER 06:15 → TELE-TD 10:32 → ICU 06-30 05:00 → TELE 07-04 14:54 → MED 07-06 09:56
PROVIDERS: ADMIT Internal Medicine; ATTEND Internal Medicine
PROC: 30233N1 Transfusion of Nonautologous Red Blood Cells into Peripheral Vein, Percutaneous Approach (ICD-10-PCS; 2016-06-29)
PROC: 0BH17EZ Insertion of Endotracheal Airway into Trachea, Via Natural or Artificial Opening (ICD-10-PCS; principal; 2016-06-30)
PROC: 5A1945Z Respiratory Ventilation, 24-96 Consecutive Hours (ICD-10-PCS; principal; 2016-06-30)
PROC: 05H533Z Insertion of Infusion Device into Right Subclavian Vein, Percutaneous Approach (ICD-10-PCS; 2016-07-02)
PROC: 5A1D60Z (ICD-10-PCS; 2016-07-02)
PROC: 06HN33Z Insertion of Infusion Device into Left Femoral Vein, Percutaneous Approach (ICD-10-PCS; 2016-07-02)
PROC: B54CZZA Ultrasonography of Left Lower Extremity Veins, Guidance (ICD-10-PCS; 2016-07-02)
PROC: 05HM33Z Insertion of Infusion Device into Right Internal Jugular Vein, Percutaneous Approach (ICD-10-PCS; 2016-07-09)
PROC: B543ZZA Ultrasonography of Right Jugular Veins, Guidance (ICD-10-PCS; 2016-07-09)
DX: A41.9 Sepsis, unspecified organism (principal); I21.4 Non-ST elevation (NSTEMI) myocardial infarction; J18.9 Pneumonia, unspecified organism; J96.01 Acute respiratory failure with hypoxia; N17.0 Acute kidney failure with tubular necrosis; G92 Toxic encephalopathy; J96.02 Acute respiratory failure with hypercapnia; N18.6 End stage renal disease; I13.2 Hypertensive heart and chronic kidney disease with heart failure and with stage 5 chronic kidney disease, or end stage renal disease; K92.2 Gastrointestinal hemorrhage, unspecified; E10.22 Type 1 diabetes mellitus with diabetic chronic kidney disease; D63.1 Anemia in chronic kidney disease; K21.9 Gastro-esophageal reflux disease without esophagitis; Z87.01 Personal history of pneumonia (recurrent); Z99.2 Dependence on renal dialysis; E78.5 Hyperlipidemia, unspecified; D50.9 Iron deficiency anemia, unspecified; E87.5 Hyperkalemia; I50.9 Heart failure, unspecified; Z87.440 Personal history of urinary (tract) infections; E10.649 Type 1 diabetes mellitus with hypoglycemia without coma; E10.40 Type 1 diabetes mellitus with diabetic neuropathy, unspecified; E10.21 Type 1 diabetes mellitus with diabetic nephropathy; E83.42 Hypomagnesemia; E83.9 Disorder of mineral metabolism, unspecified; R65.20 Severe sepsis without septic shock; Z79.4 Long term (current) use of insulin; Z96.41 Presence of insulin pump (external) (internal); E10.65 Type 1 diabetes mellitus with hyperglycemia
CPT/HCPCS: 31720; 36415; 36600; 71010-TC; 71250-TC; 80048-TC; 80053-TC; 80061-TC; 80076-TC; 80202-TC; 80305; 81000-TC; 82272-TC; 82553-TC; 82746; 82803-TC; 82962-TC; 83540-TC; 83605-TC; 83735-TC; 83880; 84100-TC; 84443-TC; 84484-TC; 84703-TC; 85025-TC; 85610-TC; 86706; 86738; 86803; 86850-TC; 86921-TC; 87040-TC; 87081-TC; 87086-TC; 87340; 87400; 87449; 87536; 93307-TC; 94002-TC; 94003-TC; 94760-TC; 94799-TC; 99082-TC; A4216; A4606; A6402; C1750; C9113; J0171; J0330; J0456; J0461; J0696; J0885; J1644; J1815; J1940; J1956; J2060; J2543; J2916; J3370; J3475; J3490; J7030; J7040; J7042; J7050; J7060; J8597; P9016-BL; Z7610

== ENCOUNTER 2016-09-24 13:32 | Emergency (ER) | payer OTHER ==
[~2016-09-24] VITALS: Ht 167.6 cm; Wt 63.5 kg
[~2016-09-24 13:32] MED LIST: AMLO10TA2 PO; INSU100I14 SQ; INSU3INS6 SQ; LEVO250T2 PO; LOSA50TA21 PO; SEVE800T PO
[2016-09-24 14:17] LABS: BASOPHILS # (AUTO) 0.1 /CMM (0.0-0.2); BASOPHILS % (AUTO) 0.8 % (0.0-2.0); EOSINOPHILS # (AUTO) 0.6 /CMM (0.0-0.7); EOSINOPHILS % (AUTO) 5.7 % (0.0-6.0); HEMATOCRIT 34 % (33-45); HEMOGLOBIN 11.6 g/dL (11.5-14.8); LYMPHOCYTES # (AUTO) 1.8 /CMM (0.8-4.8); LYMPHOCYTES % (AUTO) 16.7 % (20.0-44.0); MEAN CORPUSCULAR HEMOGLOBIN 30 PG (26.0-33.0); MEAN CORPUSCULAR HGB CONC 34 g/dl (31.0-36.0); MEAN CORPUSCULAR VOLUME 87 fL (82-100); MONOCYTES # (AUTO) 0.8 /CMM (0.1-1.30); MONOCYTES % (AUTO) 7.5 % (2.0-12.0); NEUTROPHILS # (AUTO) 7.2 /CMM (1.8-8.9); NEUTROPHILS % (AUTO) 69.3 % (43.0-81.0); PLATELET COUNT (AUTO) 316 /CMM (150-450); RDW COEFFICIENT OF VARIATION 16.9 (11.5-15.0); WHITE BLOOD COUNT (AUTO) 10.5 K/uL (4.3-11.0)
--- NOTE | 2016-09-24 14:18 | NUR ---
BIB SELF, CC: BILATERAL LOWER EXTREMITY WEAKNESS SINCE THIS MORNING, GETTING WORSE SINCE THIS MORNING, PATIENT IS ABLE TO AMBULATE WITH ASSISTANCE, PATIENT IS VERBALLY RESPONSIVE, A/O X 4, PLACED ON MONITOR, SEEN BY MD AT BEDSIDE, ARIELA CONTINUE TO MONITOR CLOSELY.
[2016-09-24 14:32] LABS: INR 1.04 (0.87-1.13); PROTHROMBIN TIME 10.8 SECS (9.5-12.7)
[2016-09-24 14:33] LABS: ALBUMIN 2.8 g/dL (3.4-5.0); BILIRUBIN,DIRECT 0.1 mg/dL (0.0-0.2); BILIRUBIN,TOTAL 0.4 mg/dL (0.2-1.0); TOTAL PROTEIN, SERUM 6.7 g/dL (6.4-8.2)
[2016-09-24 14:48] LABS: CREATININE 7.8 mg/dL (0.6-1.3); POTASSIUM 7.7 mmol/L (3.5-5.1)
[2016-09-24] MEDS ORDERED: DEXTROSE 50%-WATER 50 ML DISP.SYRIN IVP ONE (15:00)
[2016-09-24] MEDS ORDERED: INSULIN REGULAR, HUMAN 100 UNIT/ML 10 ML VIAL IV ONE (15:00)
[2016-09-24] MEDS ORDERED: FURO20TA4 PO (15:01)
[2016-09-24] MEDS ORDERED: AZIT250T6 PO (15:01)
[2016-09-24] MEDS ORDERED: SEVE800T8 PO (15:01)
[2016-09-24] MEDS ORDERED: IV SET PRIMARY 1 EA INFUS.SET MC ONE (15:20)
[2016-09-24] MEDS ORDERED: IV NS 0.9% 500 ML IV ONE (15:20)
--- NOTE | 2016-09-24 15:57 | NUR ---
PT. VERBALIZED UNDERSTANDING OF AFTERCARE INSTRUCTIONS.Patient discharged to home in stable condition. Written and verbal after care instructions given. Patient verbalizes understanding of instruction. PT INSTRUCTED TO GO STRAIGHT TO [facility]
--- NOTE | 2016-09-24 15:57 | NUR ---
IV removed. Catheter intact and site benign. Pressure and 4x4 applied to site. No bleeding noted.
[2016-09-24 15:59] VITALS: BP 145/78
[2016-09-24] MEDS ORDERED: IV NS 0.9% 500 ML BAG IV ONE (16:00)
== END 2016-09-24 16:00 | disposition home or self-care (01) ==
LOC: ER 13:34
DX: E87.5 Hyperkalemia (principal); E11.22 Type 2 diabetes mellitus with diabetic chronic kidney disease; I12.0 Hypertensive chronic kidney disease with stage 5 chronic kidney disease or end stage renal disease; N18.6 End stage renal disease; Z79.4 Long term (current) use of insulin; Z88.2 Allergy status to sulfonamides; Z88.8 Allergy status to other drugs, medicaments and biological substances; Z86.718 Personal history of other venous thrombosis and embolism; Z99.2 Dependence on renal dialysis
CPT/HCPCS: 36415; 71010-TC; 80048-TC; 80076-TC; 82550-TC; 82553-TC; 82962-TC; 85025-TC; 85730-TC; A4606; J1815; J7040; Z7610

== ENCOUNTER 2017-03-07 09:00 | Emergency (ER) | payer OTHER ==
[~2017-03-07] VITALS: Ht 167.6 cm; Wt 64.4 kg
[~2017-03-07 09:00] MED LIST changes: +AZIT250T6 PO; +FURO20TA4 PO; -LEVO250T2 PO; -SEVE800T PO; +SEVE800T8 PO
--- NOTE | 2017-03-07 09:03 | NUR ---
A/OX4, CAM ETO ER FOR ON-OFF FEVER X TUESDAY, BODY ACHES AND THROAT PAIN. AFEBRILE. VSS NAD RR EVEN AND UNLABORED. PENDING ER MD EVALUATION
--- NOTE | 2017-03-07 09:19 | NUR ---
Patient discharged to home in stable condition. Written and verbal after care instructions given. Patient verbalizes understanding of instruction.
[2017-03-07 09:21] VITALS: BP 130/88
== END 2017-03-07 09:28 | disposition home or self-care (01) ==
LOC: ER 09:02
DX: J06.9 Acute upper respiratory infection, unspecified (principal); E11.9 Type 2 diabetes mellitus without complications; I10 Essential (primary) hypertension; Z79.4 Long term (current) use of insulin; Z86.718 Personal history of other venous thrombosis and embolism; Z99.2 Dependence on renal dialysis; Z88.2 Allergy status to sulfonamides; Z88.8 Allergy status to other drugs, medicaments and biological substances; Z94.0 Kidney transplant status
CPT/HCPCS: 99283; A4606; Z7610